=== PATIENT | female | born 1945 | race Caucasian/White ===

== ENCOUNTER 2021-04-23 09:46 | Inpatient (IN) ==
[2021-04-23] MEDS ORDERED: VANCOMYCIN CONSULT ACTIVE PRN (10:00)
[2021-04-23] MEDS ORDERED: PIPERACILLIN/TAZOBACTAM 4.5 GM/120 ML BAG IV ONE (10:00)
[2021-04-23] MEDS ORDERED: VANCOMYCIN HCL 2,250 MG in SODIUM CHLORIDE 0.9% 500 ML IV ONE (10:00)
[2021-04-23] MEDS ORDERED: PIPERACILL/TAZOBAC CONSULT ACTIVE PRN (10:00)
--- NOTE | 2021-04-23 10:05 | Emergency Department Note ---
Impression & Plan Acute appendicitis with rupture, Abdominal abscess ED Provider Note NAME: HARJIT ATKINS AGE: 75 SEX: F : 1945 ARRIVES VIA: Walk-In INFORMANT: Patient, ED PROVIDER(S): River Morales MD Chief Complaint: Abdominal pain, abnormal outpatient CT HPI: Patient presents due to concern for abdominal pain ongoing approximate 2 weeks with associated constipation where the patient had been following with [facility] ROQUE Jewell was taking MiraLAX and eventually had a bowel movement this past Thursday. The patient had had some persistent but intermittent pain in the right abdomen which was medication severe. The patient was arrange an outpatient CT which was completed this morning and she was referr ed here for further evaluation and treatment. Patient CT does show concern for likely perforated appendicitis with multiple abscesses. Patient denies any fevers or chills. Patient Nuys any chest pains or shortness of breath. Patient not vaccinated for COVID denies any recent alcohol use. The patient last ate or drank something last night. Patient is a non-smoker. Patient has had some nausea but no vomiting. Patient states that the pain has been again intermittent persistent and is occasionally sharp but occasionally more dull. ROS: See HPI for pertinent positives and negatives. A total of 10 systems were reviewed and otherwise negative. Past medical history: See below Surgical history: See below Social history: See below Physical Exam: GENERAL: NAD, wearing glasses, wearing a mask, non-toxic. EYE EXAM: Normal conjunctiva. PERRL, no anisocoria and EOM's grossly intact w/o pain. NECK: Supple, no nuchal rigidity, no adenopathy, non-tender. No signs of meningismus. LUNGS: Clear to auscultation. Normal chest wall mechanics. HEART: NSR, no MRG. ABDOMEN: Abdomen soft, non-tender, normo-active bowel sounds, no masses, no rebound or guarding. BACK: No CVA TTP. SKIN: No rashes and no bruising. UPPER EXTREMITIES: Upper extremities are grossly normal. LOWER EXTREMITIES: Grossly normal, no edema. NEURO EXAM: A&O x3, cranial nerves II-XII grossly intact, normal speech, moves all 4 extremities on command w/o issue. Differential diagnoses: Appendicitis, ovarian cyst, ovarian torsion, ectopic , TOA, PID, infections, diverticulitis, UTI, obstruction, mesenteric ischemia, aortic pathology, inflammatory bowel disease, renal colic, PUD, pancreatitis, biliary pathology, hernia, volvulus, constipation, as well as other pathologies. Course: Patient was seen and evaluated the bedside. Full history physical exam was performed. EKG interpreted by me Normal sinus rhythm, rate in V3, wide QRS and right bundle branch block pattern. Imaging Studies: Outpatient CT completed prior to arrival CT SCAN OF THE ABDOMEN AND PELVIS WITH IV CONTRAST CLINICAL HISTORY: Right-sided abdominal pain. Constipation. COMPARISON STUDY: No priors. TECHNIQUE: Following the IV administration of 95 cc of Optiray 320, CT scan of the abdomen and pelvis is performed from the lung bases to the proximal femora. Images are reviewed in the axial, sagittal, and coronal planes. IV contrast was administered without complication. Oral contrast was utilized. A dose lowering technique was utilized adhering to the principles of ALARA. CT DOSE: 926.92 mGy.cm FINDINGS: Lung bases: The heart is mildly enlarged and without pericardial effusion. There is a moderate hiatal hernia. There are trace pleural effusions with dependent atelectasis. A 3 mm pulmonary nodule in the right middle lobe as seen on image #3. A punctate calcified granuloma seen at the left lung base. Liver: The contrast-enhanced liver is normal in size, contour, and attenuation. There is no intrahepatic biliary ductal dilatation. The hepatic veins and portal veins are patent. Gallbladder: Contracted. Spleen: Normal in size and attenuation. Pancreas: Unremarkable. Adrenal glands: Unremarkable. Kidneys: The contrast enhanced kidneys are normal in size and without hydronephrosis. The kidneys enhance symmetrically. Abdominal vasculature: The abdominal aorta is normal in course and caliber. Bowel and peritoneum: There is no bowel obstruction. Enteric contrast reaches the rectum. There is mild to moderate colonic diverticulosis without CT evidence of acute diverticulitis. There is a large calcified appendicolith at the base of the appendix seen on image #237. There is inflammatory process in the right lower quadrant centered around the expected location of the appendix. The appendix is markedly abnormal, with evidence of appendicitis and rupture. There is a thick walled, peripherally enhancing, and multiloculated fluid collection identified in the right lower quadrant extending superiorly along the cecum and along the anterior and posterior aspect of the liver. There is associated wall thickening of the cecum and ascending colon. A loculation of the collection extending from the right lower quadrant along the lateral aspect of the ascending colon on image #235 measures approximately 7.5 x 6.5 x 3 cm in aggregate dimension. A loculation along the posterior/inferior aspect of the right lobe of the liver seen on image #178 measures 4.0 x 4.4 x 3.3 cm. A small loculation along the anterior/inferior right lobe of liver on image #169 measures 3.1 x 4.1 x 1.8 cm. There is no intraperitoneal free air or abdominal ascites. There is a small fat-containing umbilical hernia. Lymphadenopathy: None. Pelvic viscera: The bladder, uterus, and adnexa are normal as visualized. Skeletal structures: The skeletal structures are osteopenic. There is mild to moderate lumbosacral spondylosis. Large posterior disc osteophyte complexes are seen at T12-L1 and L1-L2. No lytic or blastic lesions are seen. IMPRESSION: 1. There is a large inflammatory process in the right lower quadrant as detailed above, likely representing perforated appendicitis. Surgical assessment is advised. 2. There are several multiloculated fluid collections in the right hemiabdomen as detailed above extending from the right lower quadrant/base of the cecum to the inferior margin of the liver (both anteriorly and posteriorly). These are typical for abscesses. 3. Wall thickening of the cecum is likely related to adjacent inflammation. 4. Cardiomegaly and trace pleural effusions. 5. Moderate hiatal hernia. 6. There is no bowel obstruction. 7. Additional findings as above. Findings were discussed with Leidy Ahn at the time of interpretation. ACT 112: Negative or not required by law. Electronically signed by: Wilman Vizcaino M.D. 04/23/2021 9:19 AM Dictated:04/23/2148 Transcribed: 04/23/21 09 Cardiac monitoring: An order was placed for continuous cardiac monitoring. The monitor shows a rate of 85 with sinus rhythm. MDM: Patient was seen due to concern for intermittent abdominal pain in the right side. The patient did have an outpatient CAT scan which showed concern for ruptured appendicitis with multiple abdominal wall abscesses. Patient currently has no acute abdominal pain on exam. Given the patient's acute process I did speak with the on-call general surgeon Dr. Dunn and Alexsandra Yarbrough PA-C. They both evaluate the patient believe the patient should go to place where there is interventional radiology. I did initiated transfer to [facility]. The patient was empirically covered with vancomycin and Zosyn given the concern for ruptured appendicitis and abdominal abscesses. . Patient has a white count of 16 with very mild anemia hemoglobin 11.2. Patient's platelet count is slightly elevated 438. Patient did have a screening chest ray completed which showed cardiomegaly and small pleural effusions. I did speak with Dr. Zuniga with general surgery who, expect accepted the patient. The patient was put on the wait list as they were pending discharges but no current beds available. Upon several reassessments the patient had no pain. Patient was ordered her home medications and was scheduled her antibiotics. The patient was also started on maintenance fluids. Patient was signed out to Dr. Oro pending transfer. Past Med/Surg History Medical History H/O: HTN (hypertension) HLD (hyperlipidemia) Surgical History History of tonsillectomy Social History Smoking Status: Never smoker Feels Safe at Home: Yes Immunizations: Not vaccinated for COVID-19 Allergies Allergies Allergy/AdvReac Type Severity Reaction Status Date / Time No Known Allergies Allergy Verified 04/23/21 15:45 Home Meds Home Medications Medication Instructions Recorded Confirmed Quercetin 500 mg PO QAM 04/23/21 04/23/21 ascorbic acid (vitamin C) 500 mg 500 mg PO QAM 04/23/21 04/23/21 tablet (Vitamin C) aspirin 81 mg tablet,delayed 81 mg PO QPM 04/23/21 04/23/21 release atorvastatin 10 mg tablet (Lipitor) 10 mg PO PM 04/23/21 04/23/21 carvedilol 6.25 mg tablet (Coreg) 6.25 mg PO BID 04/23/21 04/23/21 cholecalciferol (vitamin D3) 50 50 mcg PO QAM 04/23/21 04/23/21 mcg (2,000 unit) capsule (Vitamin D3) hydrochlorothiazide 12.5 mg tablet 12.5 mg PO DAILY PRN 04/23/21 04/23/21 lisinopril 20 mg tablet 20 mg PO QPM 04/23/21 04/23/21 omega-3 fatty acids 1,000 mg 1,000 mg PO QAM 04/23/21 04/23/21 capsule zinc 50 mg tablet 50 mg PO QAM 04/23/21 04/23/21 Results & Data (ED) Vital Signs Vital Signs - 24 hr 04/23/21 14:30 04/23/21 15:00 04/23/21 15:30 Temperature Temperature Source Pulse Rate 83 83 81 Pulse Rate [Apical] Pulse Rate from SpO2 Sensor 82 83 82 Pulse Rhythm [Apical] Pulse Strength [Apical] Respiratory Rate 24 28 H 28 H Respiratory Effort / Characteristics Respiratory Depth Respiratory Pattern Blood Pressure 146/83 H 148/83 H 155/90 H Blood Pressure [Left Arm] Blood Pressure Mean 104 104 111 Blood Pressure Mean [Left Arm] Blood Pressure Position [Left Arm] Pulse Oximetry 95 96 96 Oxygen Delivery Method 04/23/21 16:00 04/23/21 16:30 04/23/21 17:00 Temperature Temperature Source Pulse Rate 80 84 85 Pulse Rate [Apical] Pulse Rate from SpO2 Sensor 84 85 Pulse Rhythm [Apical] Pulse Strength [Apical] Respiratory Rate 22 29 H 26 H Respiratory Effort / Characteristics Respiratory Depth Respiratory Pattern Blood Pressure 146/89 H 145/94 H Blood Pressure [Left Arm] Blood Pressure Mean 108 111 Blood Pressure Mean [Left Arm] Blood Pressure Position [Left Arm] Pulse Oximetry 96 96 Oxygen Delivery Method 04/23/21 17:30 04/23/21 18:00 04/23/21 19:30 Temperature Temperature Source Pulse Rate 82 92 H 89 Pulse Rate [Apical] Pulse Rate from SpO2 Sensor 80 93 H Pulse Rhythm [Apical] Pulse Strength [Apical] Respiratory Rate 24 29 H 27 H Respiratory Effort / Characteristics Respiratory Depth Respiratory Pattern Blood Pressure 142/82 H 157/83 H 135/73 Blood Pressure [Left Arm] Blood Pressure Mean 102 107 93 Blood Pressure Mean [Left Arm] Blood Pressure Position [Left Arm] Pulse Oximetry 95 95 95 Oxygen Delivery Method 04/23/21 20:00 04/23/21 21:00 04/23/21 22:00 Temperature Temperature Source Pulse Rate 92 H 88 88 Pulse Rate [Apical] Pulse Rate from SpO2 Sensor 89 Pulse Rhythm [Apical] Pulse Strength [Apical] Respiratory Rate 25 H 17 30 H Respiratory Effort / Characteristics Respiratory Depth Respiratory Pattern Blood Pressure 135/77 131/72 Blood Pressure [Left Arm] Blood Pressure Mean 96 91 Blood Pressure Mean [Left Arm] Blood Pressure Position [Left Arm] Pulse Oximetry 94 95 94 Oxygen Delivery Method 04/24/21 00:00 04/24/21 01:00 04/24/21 02:00 Temperature Temperature Source Pulse Rate 84 88 87 Pulse Rate [Apical] Pulse Rate from SpO2 Sensor Pulse Rhythm [Apical] Pulse Strength [Apical] Respiratory Rate 23 25 H 24 Respiratory Effort / Characteristics Respiratory Depth Respiratory Pattern Blood Pressure Blood Pressure [Left Arm] Blood Pressure Mean Blood Pressure Mean [Left Arm] Blood Pressure Position [Left Arm] Pulse Oximetry 95 95 94 Oxygen Delivery Method 04/24/21 03:00 04/24/21 04:00 04/24/21 05:00 Temperature Temperature Source Pulse Rate 90 78 78 Pulse Rate [Apical] Pulse Rate from SpO2 Sensor 91 H 79 78 Pulse Rhythm [Apical] Pulse Strength [Apical] Respiratory Rate 24 23 20 Respiratory Effort / Characteristics Respiratory Depth Respiratory Pattern Blood Pressure Blood Pressure [Left Arm] Blood Pressure Mean Blood Pressure Mean [Left Arm] Blood Pressure Position [Left Arm] Pulse Oximetry 94 94 94 Oxygen Delivery Method 04/24/21 06:00 04/24/21 07:16 04/24/21 08:01 Temperature Temperature Source Pulse Rate 74 73 74 Pulse Rate [Apical] Pulse Rate from SpO2 Sensor 75 74 74 Pulse Rhythm [Apical] Pulse Strength [Apical] Respiratory Rate 23 24 23 Respiratory Effort / Characteristics Respiratory Depth Respiratory Pattern Blood Pressure 166/113 H 180/82 H Blood Pressure [Left Arm] Blood Pressure Mean 130 114 Blood Pressure Mean [Left Arm] Blood Pressure Position [Left Arm] Pulse Oximetry 96 96 97 Oxygen Delivery Method 04/24/21 08:25 04/24/21 09:00 04/24/21 10:00 Temperature Temperature Source Pulse Rate 76 92 H 75 Pulse Rate [Apical] Pulse Rate from SpO2 Sensor Pulse Rhythm [Apical] Pulse Strength [Apical] Respiratory Rate 25 H 25 H 24 Respiratory Effort / Characteristics Respiratory Depth Respiratory Pattern Blood Pressure 118/48 L 121/66 126/74 Blood Pressure [Left Arm] Blood Pressure Mean 71 84 91 Blood Pressure Mean [Left Arm] Blood Pressure Position [Left Arm] Pulse Oximetry 96 Oxygen Delivery Method 04/24/21 11:00 04/24/21 11:32 Temperature 37.5 C Temperature Source Oral Pulse Rate 73 Pulse Rate [Apical] 77 Pulse Rate from SpO2 Sensor Pulse Rhythm [Apical] Regular Pulse Strength [Apical] Normal Respiratory Rate 23 18 Respiratory Effort / Characteristics Non-Labored Spontaneous Normal for Patient Respiratory Depth Normal Respiratory Pattern Regular Blood Pressure 126/65 Blood Pressure [Left Arm] 133/68 Blood Pressure Mean 85 Blood Pressure Mean [Left Arm] 89 Blood Pressure Position [Left Arm] Semi-fowlers Pulse Oximetry 95 99 Oxygen Delivery Method Room Air Home Medications Current Medication List: was personally reviewed by me Laboratory Data Attestation: I reviewed the patient's lab results. Result diagrams: 04/23/21 10:40 04/24/21 04:49 Lab Results 04/23/21 04/23/21 04/23/21 Range/Units 10:40 10:40 10:40 WBC 16.83 H (4.8-10.8) K/uL RBC 3.59 L (4.2-5.4) M/uL Hgb 11.2 L (12.0-16.0) g/dL Hct 35.0 L (37-47) % MCV 97.5 (80-100) fL MCH 31.2 (25-34) pg MCHC 32.0 (32-36) g/dL RDW Std Deviation 46.6 H (36.4-46.3) fL RDW Coeff of Fatoumata 13.0 (11.5-14.5) % Plt Count 438 H (130-400) K/uL MPV 9.1 (7.4-10.4) fL Immature Gran % (Auto) 0.2 % Neut % (Auto) 86.9 % Lymph % (Auto) 4.8 % Noble % (Auto) 7.5 % Eos % (Auto) 0.5 % Baso % (Auto) 0.1 % Neut # (Auto) 14.61 H (1.4-6.5) K/uL Lymph # (Auto) 0.80 L (1.2-3.4) K/uL Noble # (Auto) 1.27 H (0.11-0.59) K/uL Eos # (Auto) 0.09 (0-0.5) K/uL Baso # (Auto) 0.02 (0-0.2) K/uL Immature Gran # (Auto) 0.04 H (0.00-0.02) K/uL Sodium 136 (136-145) mmol/L Potassium (3.5-5.1) mmol/L Chloride 106 (98-107) mmol/L Carbon Dioxide 20 L (21-32) mmol/L Anion Gap 10 (3-11) BUN 28 H (6-23) mg/dl Creatinine 1.37 H (0.6-1.2) mg/dl Est Cr Clr Drug Dosing 40.0 ml/min Est GFR ( Amer) 44.2 ml/min Est GFR (Non-Af Amer) 38.2 ml/min BUN/Creatinine Ratio 20.4 H (10-20) Glucose 75 (70-99(Fasting)) mg/dl Calcium 9.1 (8.5-10.1) mg/dl Total Bilirubin 0.4 (0.2-1.0) mg/dl AST (13-39) U/L ALT 16 (7-52) U/L Alkaline Phosphatase 77 (34-104) U/L Total Protein 7.0 (6.0-8.3) gm/dl Albumin 3.3 L (3.4-5.0) gm/dl Globulin 3.7 (2.5-4.0) gm/dl Albumin/Globulin Ratio 0.9 (0.9-2) SARS-CoV-2, RNA, NAAT Cancelled 04/23/21 04/23/21 04/24/21 Range/Units 11:20 11:39 04:49 WBC (4.8-10.8) K/uL RBC (4.2-5.4) M/uL Hgb (12.0-16.0) g/dL Hct (37-47) % MCV (80-100) fL MCH (25-34) pg MCHC (32-36) g/dL RDW Std Deviation (36.4-46.3) fL RDW Coeff of Fatoumata (11.5-14.5) % Plt Count (130-400) K/uL MPV (7.4-10.4) fL Immature Gran % (Auto) % Neut % (Auto) % Lymph % (Auto) % Noble % (Auto) % Eos % (Auto) % Baso % (Auto) % Neut # (Auto) (1.4-6.5) K/uL Lymph # (Auto) (1.2-3.4) K/uL Noble # (Auto) (0.11-0.59) K/uL Eos # (Auto) (0-0.5) K/uL Baso # (Auto) (0-0.2) K/uL Immature Gran # (Auto) (0.00-0.02) K/uL Sodium (136-145) mmol/L Potassium 4.2 (3.5-5.1) mmol/L Chloride (98-107) mmol/L Carbon Dioxide (21-32) mmol/L Anion Gap (3-11) BUN (6-23) mg/dl Creatinine 1.36 H (0.6-1.2) mg/dl Est Cr Clr Drug Dosing 40.2 ml/min Est GFR ( Amer) 44.6 ml/min Est GFR (Non-Af Amer) 38.5 ml/min BUN/Creatinine Ratio (10-20) Glucose (70-99(Fasting)) mg/dl Calcium (8.5-10.1) mg/dl Total Bilirubin (0.2-1.0) mg/dl AST 16 (13-39) U/L ALT (7-52) U/L Alkaline Phosphatase (34-104) U/L Total Protein (6.0-8.3) gm/dl Albumin (3.4-5.0) gm/dl Globulin (2.5-4.0) gm/dl Albumin/Globulin Ratio (0.9-2) SARS-CoV-2, RNA, NAAT NEGATIVE Administered Medications Carvedilol (Carvedilol 6.25 Mg Tab) 6.25 mg PO BID [facility] Stop: 05/23/21 20:59 Last Admin: 04/24/21 08:29 Dose: 6.25 mg Documented by: [id number] Admin: 04/23/21 21:28 Dose: 6.25 mg Documented by: [id number] Piperacillin Sod/Tazobactam (Sod 4.5 gm/ Dextrose) 120 mls @ 30 mls/hr IV Q8H [facility]; Protocol Stop: 05/03/21 15:59 Last Admin: 04/24/21 08:29 Dose: 30 mls/hr Documented by: [id number] Infusion: 04/24/21 05:02 Dose: 0 mls/hr Documented by: [id number] Admin: 04/24/21 00:23 Dose: 30 mls/hr Documented by: [id number] Infusion: 04/23/21 20:49 Dose: 0 mls/hr Documented by: [id number] Admin: 04/23/21 16:57 Dose: 30 mls/hr Documented by: [id number] Sodium Chloride (Nss) 500 mls @ 100 mls/hr IV .Q5H [facility] Stop: 05/23/21 15:44 Last Infusion: 04/24/21 08:19 Dose: 0 mls/hr Documented by: [id number] Admin: 04/24/21 03:13 Dose: 100 mls/hr Documented by: [id number] Infusion: 04/24/21 03:13 Dose: 0 mls/hr Documented by: [id number] Admin: 04/23/21 21:29 Dose: 100 mls/hr Documented by: [id number] Infusion: 04/23/21 20:49 Dose: 0 mls/hr Documented by: [id number] Admin: 04/23/21 15:42 Dose: 100 mls/hr Documented by: [id number] Vancomycin HCl 1,000 mg/ (Sodium Chloride) 270 mls @ 200 mls/hr IV Q18H [facility] Stop: 05/04/21 07:59 Last Infusion: 04/24/21 09:55 Dose: 0 mls/hr Documented by: [id number] Admin: 04/24/21 08:28 Dose: 200 mls/hr Documented by: [id number] Lactated Ringer's (Lr) 1,000 mls @ 15 mls/hr IV .Q24H [facility]EN Stop: 04/25/21 12:14 Last Infusion: 04/24/21 12:03 Dose: 0 mls/hr Documented by: [id number] Admin: 04/24/21 11:59 Dose: 15 mls/hr Documented by: [id number] Lisinopril (Lisinopril 20 Mg Tab) 20 mg PO HS KEN Stop: 05/23/21 20:59 Last Admin: 04/23/21 21:28 Dose: 20 mg Documented by: [id number] Discontinued Medications Piperacillin Sod/Tazobactam Sod (Zosyn) 4.5 gm in 120 mls @ 240 mls/hr IV NOW ONE Stop: 04/23/21 10:29 Last Infusion: 04/23/21 11:45 Dose: 0 mls/hr Documented by: [id number] Admin: 04/23/21 11:15 Dose: 240 mls/hr Documented by: [id number] Vancomycin HCl 2,250 mg/ (Sodium Chloride) 545 mls @ 200 mls/hr IV NOW ONE Stop: 04/23/21 12:43 Last Infusion: 04/23/21 16:00 Dose: 0 mls/hr Documented by: [id number] Admin: 04/23/21 12:50 Dose: 200 mls/hr Documented by: [id number] Pantoprazole Sodium 40 mg/ (Syringe) 10 mls @ 5 mls/min IV NOW ONE Stop: 04/23/21 20:38 Last Admin: 04/23/21 21:29 Dose: 5 mls/min Documented by: [id number] Sodium Chloride (Nss 1000ml) 1,000 mls @ 999 mls/hr IV .Q1H1M ONE Stop: 04/24/21 09:03 Last Infusion: 04/24/21 10:47 Dose: 0 mls/hr Documented by: [id number] Admin: 04/24/21 08:28 Dose: 999 mls/hr Documented by: [id number] Imaging Data Radiologist's Impression: Chest X-Ray 04/23/21 10:00 SINGLE VIEW CHEST CLINICAL HISTORY: Generalized weakness. FINDINGS: An AP, portable, upright chest radiograph is obtained. Correlation is made with abdominal CT performed the same day 04/23/2021. The heart is enlarged. The pulmonary vasculature is noncongested. There are small pleural effusions with bibasilar atelectasis. No pneumothorax is seen. The skeletal structures are osteopenic. The bony thorax is grossly intact. IMPRESSION: Cardiomegaly and small pleural effusions. ACT 112: Negative or not required by law. Electronically signed by: Wilman Vizcaino M.D. 04/23/2021 10:19 AM Discharge Plan Visit Data Chief Complaint: Abnormal Labs/Diagnostic Testing Stated Complaint: CAT SCAN THIS MORNING, ISSUE W/ APPENDIX ED Provider: Anthony Fraga Discharge Problem: Acute appendicitis with rupture, Abdominal abscess Discharge Instructions Interventions: ED Discharge Assessment Last Done: 04/24/21 11:11 Forms Stand Alone Forms: [employer] Prescriptions Prescriptions: No Action carvedilol [Coreg] 6.25 mg Tablet 6.25 mg PO BID RF: 0 omega-3 fatty acids 1,000 mg Capsule 1,000 mg PO QAM RF: 0 atorvastatin [Lipitor] 10 mg Tablet 10 mg PO PM RF: 0 lisinopril 20 mg Tablet 20 mg PO QPM RF: 0 aspirin 81 mg Tablet,Delayed Release (Dr/Ec) 81 mg PO QPM RF: 0 ascorbic acid (vitamin C) [Vitamin C] 500 mg Tablet 500 mg PO QAM RF: 0 zinc 50 mg Tablet 50 mg PO QAM RF: 0 hydrochlorothiazide 12.5 mg Tablet 12.5 mg PO DAILY PRN (Reason: EDEMA OF LEGS) RF: 0 cholecalciferol (vitamin D3) [Vitamin D3] 50 mcg (2,000 unit) Capsule 50 mcg PO QAM RF: 0 Quercetin 500 mg PO QAM RF: 0 Referrals Referrals: PCP,NO [Primary Care Provider] -
--- NOTE | 2021-04-23 10:20 | XRay Report ---
SINGLE VIEW CHEST CLINICAL HISTORY: Generalized weakness. FINDINGS: An AP, portable, upright chest radiograph is obtained. Correlation is made with abdominal C T performed the same day 04/23/2021. The heart is enlarged. The pulmonary vasculature is noncongested. There are small pleural effusions with bibasilar atelectasis. No pneumothorax is seen. The skeletal structures are osteopenic. The bony thorax is grossly intact. IMPRESSION: Cardiomegaly and small pleural effusions. ACT 112: Negative or not required by law. Electronically signed by: Wilman Vizcaino M.D. 04/23/2021 10:19 AM
[2021-04-23 10:48] LABS: Basophils # (auto) 0.02 K/uL (0-0.2); Basophils % (auto) 0.1 %; Eosinophils # (auto) 0.09 K/uL (0-0.5); Eosinophils % (auto) 0.5 %; Hemoglobin 11.2 g/dL (12.0-16.0); Immature Granulocytes # (auto) 0.04 K/uL (0.00-0.02); Immature Granulocytes % (auto) 0.2 %; Lymphocytes % (auto) 4.8 %; Mean Corpuscular Hemoglobin 31.2 pg (25-34); Mean Corpuscular Volume 97.5 fL (80-100); Mean Platelet Volume 9.1 fL (7.4-10.4); Monocytes # (auto) 1.27 K/uL (0.11-0.59); Monocytes % (auto) 7.5 %; Neutrophils # (auto) 14.61 K/uL (1.4-6.5); Neutrophils % (auto) 86.9 %; Platelet Count 438 K/uL (130-400); RDW Standard Deviation 46.6 fL (36.4-46.3); Red Blood Count 3.59 M/uL (4.2-5.4); White Blood Count 16.83 K/uL (4.8-10.8)
[2021-04-23 11:15] LABS: Albumin Globulin Ratio 0.9 (0.9-2); Albumin Level 3.3 gm/dl (3.4-5.0); BUN Creatinine Ratio 20.4 (10-20); Bilirubin,Total 0.4 mg/dl (0.2-1.0); Calcium 9.1 mg/dl (8.5-10.1); Est GFR (African American) 44.2 ml/min; Est GFR (Non-African American) 38.2 ml/min; Globulin 3.7 gm/dl (2.5-4.0)
--- NOTE | 2021-04-23 11:30 | Surgery Consultation ---
Date of Consultation April 23, 2021 Assessment & Plan (1) Acute appendicitis with rupture: pt is a 75 year-old female who presents to ER with 2 weeks history abdominal pain, CT scan- perforated appendicitis, with abdominal abscess IMP: perforated appendicitis, with abdominal abscess plan, base on H/P, labs, CT scan finding, recommend to transfer higher level for percutaneous drainage abscess, D/W benefits, risks and alternatives of the transfer, pt and her understood, they agree with the plan,I answered all questions, D/W ER attending. (2) Abdominal abscess: History of Present Illness Reason for Consultation: perforated appendicitis Requesting Physician: River Kunz History of Present Illness Chief Complaint: Abdominal pain, abnormal outpatient CT HPI: Patient presents due to concern for abdominal pain ongoing approximate 2 weeks with associated constipation [facility] MiraLA[facility] and eventually had a bowel movement this past Thursday. The patient had had some persistent but intermittent pain in the right abdomen which was medication severe. The patient was arrange an outpatient CT which was completed this morning and she was referred here for further evaluation and treatment. Patient CT does show concern for likely perforated appendicitis with multiple abscesses. Patient denies any fevers or chills. Patient [place] any chest pains or shortness of breath. Patient not vaccinated for COVID denies any recent alcohol use. The patient last ate or drank something last night. Patient is a non-smoker. Patient has had some nausea but no vomiting. Patient states that the pain has been again intermittent persistent and is occasionally sharp but occasionally more dull. I ( Sandra Dunn MD ) got a call for consult perforated appendicitis, I reviewed pt's H/P, labs CT scan with pt, pt feels better, less abdominal pain, no fever. Patient History Social History Smoking Status: Never smoker Feels Safe at Home: Yes Review of Systems Constitutional: as per Subjective / HPI Eyes: as per Subjective / HPI Respiratory: as per Subjective / HPI Cardiovascular: Additional Comments: abnormal EKG, no chest pain Gastrointestinal: as per Subjective / HPI Genitourinary: as per Subjective / HPI Musculoskeletal: as per Subjective / HPI Neurologic: as per Subjective / HPI Psychiatric: as per Subjective / HPI Endocrine: as per Subjective / HPI Hematologic / Lymphatic: as per Subjective / HPI Physical Exam Constitutional: WD/WN, vitals as above no acute distress, Eyes: PERRL, conjunctivae normal, anicteric sclerae Neck: trachea midline, no thyromegaly Respiratory: normal respiratory effort, lungs clear to auscultation Cardiovascular: RRR, no murmur, no edema Gastrointestinal (Abdomen): soft, tenderness at RLQ, no rebound pain, no distend, BS + Musculoskeletal: no cyanosis or clubbing, extremities motor strength 5/5 Neurologic: patellar DTR's 2+ bilat, sensation intact Psychiatric: A+Ox3, euthymic affect Results & Data ([facility]) Vital Signs (Past 12 Hours) Vital Signs Temp Pulse Resp BP Pulse Ox 04/23/21 10:13 96 04/23/21 09:48 36.4 C L 92 H 16 173/84 H 97 Laboratory Results Abnormal lab results 04/23/21 04/23/21 Range/Units 10:40 10:40 WBC 16.83 H (4.8-10.8) K/uL RBC 3.59 L (4.2-5.4) M/uL Hgb 11.2 L (12.0-16.0) g/dL Hct 35.0 L (37-47) % RDW Std Deviation 46.6 H (36.4-46.3) fL Plt Count 438 H (130-400) K/uL Neut # (Auto) 14.61 H (1.4-6.5) K/uL Lymph # (Auto) 0.80 L (1.2-3.4) K/uL [place] # (Auto) 1.27 H (0.11-0.59) K/uL Immature Gran # (Auto) 0.04 H (0.00-0.02) K/uL Carbon Dioxide 20 L (21-32) mmol/L BUN 28 H (6-23) mg/dl Creatinine 1.37 H (0.6-1.2) mg/dl BUN/Creatinine Ratio 20.4 H (10-20) Albumin 3.3 L (3.4-5.0) gm/dl Diagnostic Findings CT SCAN OF THE ABDOMEN AND PELVIS WITH IV CONTRAST CLINICAL HISTORY: Right-sided abdominal pain. Constipation. COMPARISON STUDY: No priors. TECHNIQUE: Following the IV administration of 95 cc of Optiray 320, CT scan of the abdomen and pelvis is performed from the lung bases to the proximal femora. Images are reviewed in the axial, sagittal, and coronal planes. IV contrast was administered without complication. Oral contrast was utilized. A dose lowering technique was utilized adhering to the principles of ALARA. CT DOSE: 926.92 mGy.cm FINDINGS: Lung bases: The heart is mildly enlarged and without pericardial effusion. There is a moderate hiatal hernia. There are trace pleural effusions with dependent atelectasis. A 3 mm pulmonary nodule in the right middle lobe as seen on image #3. A punctate calcified granuloma seen at the left lung base. Liver: The contrast-enhanced liver is normal in size, contour, and attenuation. There is no intrahepatic biliary ductal dilatation. The hepatic veins and portal veins are patent. Gallbladder: Contracted. Spleen: Normal in size and attenuation. Pancreas: Unremarkable. Adrenal glands: Unremarkable. Kidneys: The contrast enhanced kidneys are normal in size and without hydronephrosis. The kidneys enhance symmetrically. Abdominal vasculature: The abdominal aorta is normal in course and caliber. Bowel and peritoneum: There is no bowel obstruction. Enteric contrast reaches the rectum. There is mild to moderate colonic diverticulosis without CT evidence of acute diverticulitis. There is a large calcified appendicolith at the base of the appendix seen on image #237. There is inflammatory process in the right lower quadrant centered around the expected location of the appendix. The appendix is markedly abnormal, with evidence of appendicitis and rupture. There is a thick walled, peripherally enhancing, and multiloculated fluid collection identified in the right lower quadrant extending superiorly along the cecum and along the anterior and posterior aspect of the liver. There is associated wall thickening of the cecum and ascending colon. A loculation of the collection extending from the right lower quadrant along the lateral aspect of the ascending colon on image #235 measures approximately 7.5 x 6.5 x 3 cm in aggregate dimension. A loculation along the posterior/inferior aspect of the right lobe of the liver seen on image #178 measures 4.0 x 4.4 x 3.3 cm. A small loculation along the anterior/inferior right lobe of liver on image #169 me asures 3.1 x 4.1 x 1.8 cm. There is no intraperitoneal free air or abdominal ascites. There is a small fat-containing umbilical hernia. Lymphadenopathy: None. Pelvic viscera: The bladder, uterus, and adnexa are normal as visualized. Skeletal structures: The skeletal structures are osteopenic. There is mild to moderate lumbosacral spondylosis. Large posterior disc osteophyte complexes are seen at T12-L1 and L1-L2. No lytic or blastic lesions are seen. IMPRESSION: 1. There is a large inflammatory process in the right lower quadrant as detailed above, likely representing perforated appendicitis. Surgical assessment is advised. 2. There are several multiloculated fluid collections in the right hemiabdomen as detailed above extending from the right lower quadrant/base of the cecum to the inferior margin of the liver (both anteriorly and posteriorly). These are typical for abscesses. 3. Wall thickening of the cecum is likely related to adjacent inflammation. 4. Cardiomegaly and trace pleural effusions. 5. Moderate hiatal hernia. 6. There is no bowel obstruction. 7. Additional findings as above.
--- NOTE | 2021-04-23 11:56 | Electrocardiogram Report ---
Test Reason : Blood Pressure : / mmHG Vent. Rate : 093 BPM Atrial Rate : 093 BPM P-R Int : 140 ms QRS Dur : 140 ms QT Int : 404 ms P-R-T Axes : 061 237 026 degrees QTc Int : 502 ms Poor data quality, interpretation may be adversely affected Normal sinus rhythm Right bundle branch block Poor R wave progression, consider anterior NV vs. lead placement vs. LVH Abnormal ECG No previous ECGs available Confirmed by Jonathan Joy ([id number]) on 04/23/2021 11:56:14 AM Referred By: Leidy Ahn Confirmed By:Jonathan Joy
[2021-04-23 12:16] LABS: Potassium 4.2 mmol/L (3.5-5.1)
[2021-04-23] MEDS: SODIUM CHLORIDE 0.9% 500 ML IV SCH ×2 (15:42→21:29)
--- NOTE | 2021-04-23 16:51 | Pharmacy Report ---
Pharmacy Vanc AUC Short Note - Date of Service April 23, 2021 - Assessment & Plan Assessment 75 year old F receiving vancomycin and zosyn for treatment of perforated appendicitis w/ abscesses. Awaiting transfer to higher level of care for percutaneous drainage. Blood cultures pending, eCrCL ~ 40mL/min. Day #1 of antimicrobial therapy Plan Vancomycin * AUC/DEYANIRA is the preferred PK/PD target for vancomycin * AUC guided dosing is effective and associated with decreased risk of nephrotoxicity compared to traditional trough targets * Trough level of 18.8mcg/mL is predicted to achieve target AUC/DEYANIRA of 400-600 mg/L.hr and may be associated with a 15 % risk of nephrotoxicity * S/p vancomycin 2250mg IV load. Begin 1gm IV q18h. * Will evaluate renal function in AM to dose adjust if necessary. Plan to obtain a trough around steady state to correlate with AUC. Zosyn * 4.5gm IV q8h extended infusion for CrCL >20mL/min and BMI>35 Pharmacy will continue to follow and will adjust dose/frequency as necessary. Thank you.
[2021-04-23] MEDS: PIPERACILLIN/TAZOBACTAM 4.5 GM in DEXTROSE 5% 100 ML IV SCH (16:57)
[2021-04-23] MEDS ORDERED: PANTOprazole 40 MG in SYRINGE 0 ML IV ONE (20:37)
[2021-04-23] MEDS ORDERED: lisinopril 20 MG TAB PO SCH (21:00)
[2021-04-23] MEDS: carvediloL 6.25 MG TAB PO SCH (21:28)
[2021-04-24] MEDS: PIPERACILLIN/TAZOBACTAM 4.5 GM in DEXTROSE 5% 100 ML IV SCH ×4 (00:23→23:17)
--- NOTE | 2021-04-24 00:56 | Emergency Department Note ---
ED Visit Note Patient was signed out to me by Dr. Morales at change of shift, in brief, patient is a 75-year-old female who presented to the emergency department with ongoing abdominal pain for several weeks, outpatient CT imaging today showed evidence of a perforated appendicitis with evidence of intra-abdominal abscess. On my assessment the patient is resting comfortably in bed, states that she feels well at rest, she is hemodynamically stable, she is watching TV. Her abdomen is soft, she has some mild tenderness in the right side of her abdomen to palp ation. She is not peritonitis on my exam. Pt has been ordered IV antibiotics with Zosyn every 8 hours, she did receive her second dose of Zosyn during my shift, and has been accepted for transfer to [facility] for abscess drainage likely by interventional radiology. She was assessed by general surgery here in the ED for consultation who recommended transfer. I was informed by the ED ranch cook the transfer will likely be occurring in the morning, there is no bed availability at [facility] overnight. Patient was therefore signed out to Dr. Christie in stable condition for further care pending transfer to [facility]. Patient was in agreement to the above plan, she was updated and aware of the current transfer schedule. .
[2021-04-24] MEDS: SODIUM CHLORIDE 0.9% 500 ML IV SCH (03:13)
[2021-04-24 05:47] LABS: Creatinine Clr Calc Pharmacy 40.2 ml/min; Est GFR (African American) 44.6 ml/min; Est GFR (Non-African American) 38.5 ml/min
--- NOTE | 2021-04-24 07:40 | Emergency Department Note ---
ED Visit Note I received this patient at change of shift signout. The patient is a 75-year-old female who has a ruptured appendicitis with multiple intra-abdominal abscesses. She was initially evaluated by surgery in our department and was slated for transfer. She has been receiving all of her outpatient medications as well as IV antibiotics. She is not febrile this morning. The patient is still waiting a bed at [facility]. We contacted [facility] this morning and they still have no bed available. I will reevaluate the patient to determine if she would prefer a different tertiary center for transfer. I did evaluate the patient this morning. She does state that her pain is starting to return. She notices pain mostly on the right side and in the right upper abdomen. She denies having any fever or vomiting today. The patient states she would not mind if we tried to call a different tertiary center for transfer as the patient has been in our department for many hours without surgical intervention or interventional radiology. 0800: I discussed this case with Dr. Bond at [facility] for general surgery. He will accept the patient in transfer and consult interventional radiology upon arrival. 0930: I did discuss the patient's case again with our general surgical group. I asked that they could come and reevaluate the patient as she has been here for 24 hours. Upon reevaluation they did offer the patient the opportunity to be taken to our operating room for laparoscopic management and possible surgical drainage of these abscesses. After discussion with the patient's significant other she would prefer to have this option. The patient was consented for the OR by the general surgeon. Patient: HARJIT ATKINS Admit Date: 04/23/21 MR#: [id number] Address1: [address] [place] Acct ID:[id number] Address2: Date: 1945 [facility] Zip: [place] [address] Age: 75 Location: CT Sex: F Room/Bed: Att Phy: Leidy Ahn CRNP Diagnosis: ABD PAIN, CONSTIPATION Misty Phy: PCP,NO Service Date: 04/23/21 Fam Phy: Interpreting Phy: Wilman Vizcaino MD Admit Phy: Ordering Phy: Leidy Ahn CRNP cc: ~ CT SCAN OF THE ABDOMEN AND PELVIS WITH IV CONTRAST CLINICAL HISTORY: Right-sided abdominal pain. Constipation. COMPARISON STUDY: No priors. TECHNIQUE: Following the IV administration of 95 cc of Optiray 320, CT scan of the abdomen and pelvis is performed from the lung bases to the proximal femora. Images are reviewed in the axial, sagittal, and coronal planes. IV contrast was administered without complication. Oral contrast was utilized. A dose lowering technique was utilized adhering to the principles of ALARA. CT DOSE: 926.92 mGy.cm FINDINGS: Lung bases: The heart is mildly enlarged and without pericardial effusion. There is a moderate hiatal hernia. There are trace pleural effusions with dependent atelectasis. A 3 mm pulmonary nodule in the right middle lobe as seen on image #3. A punctate calcified granuloma seen at the left lung base. Liver: The contrast-enhanced liver is normal in size, contour, and attenuation. There is no intrahepatic biliary ductal dilatation. The hepatic veins and portal veins are patent. Gallbladder: Contracted. Spleen: Normal in size and attenuation. Pancreas: Unremarkable. Adrenal glands: Unremarkable. Kidneys: The contrast enhanced kidneys are normal in size and without hydronephrosis. The kidneys enhance symmetrically. Abdominal vasculature: The abdominal aorta is normal in course and caliber. Bowel and peritoneum: There is no bowel obstruction. Enteric contrast reaches the rectum. There is mild to moderate colonic diverticulosis without CT evidence of acute diverticulitis. There is a large calcified appendicolith at the base of the appendix seen on image #237. There is inflammatory process in the right lower quadrant centered around the expected location of the appendix. The appendix is markedly abnormal, with evidence of appendicitis and rupture. There is a thick walled, peripherally enhancing, and multiloculated fluid collection identified in the right lower quadrant extending superiorly along the cecum and along the anterior and posterior aspect of the liver. There is associated wall thickening of the cecum and ascending colon. A loculation of the collection extending from the right lower quadrant along the lateral aspect of the ascending colon on image #235 measures approximately 7.5 x 6.5 x 3 cm in aggregate dimension. A loculation along the posterior/inferior aspect of the right lobe of the liver seen on image #178 measures 4.0 x 4.4 x 3.3 cm. A small loculation along the anterior/inferior right lobe of liver on image #169 measures 3.1 x 4.1 x 1.8 cm. There is no intraperitoneal free air or abdominal ascites. There is a small fat-containing umbilical hernia. Lymphadenopathy: None. Pelvic viscera: The bladder, uterus, and adnexa are normal as visualized. Skeletal structures: The skeletal structures are osteopenic. There is mild to moderate lumbosacral spondylosis. Large posterior disc osteophyte complexes are seen at T12-L1 and L1-L2. No lytic or blastic lesions are seen. IMPRESSION: 1. There is a large inflammatory process in the right lower quadrant as detailed above, likely representing perforated appendicitis. Surgical assessment is advised. 2. There are several multiloculated fluid collections in the right hemiabdomen as detailed above extending from the right lower quadrant/base of the cecum to the inferior margin of the liver (both anteriorly and posteriorly). These are typical for abscesses. 3. Wall thickening of the cecum is likely related to adjacent inflammation. 4. Cardiomegaly and trace pleural effusions. 5. Moderate hiatal hernia. 6. There is no bowel obstruction. 7. Additional findings as above. Findings were discussed with Leidy Ahn at the time of interpretation. ACT 112: Negative or not required by law. Electronically signed by: Wilman Vizcaino M.D. 04/23/2021 9:19 AM Dictated: 04/23/21 0848 Transcribed: 04/23/21 0902 .
[2021-04-24] MEDS ORDERED: SODIUM CHLORIDE 0.9% 1000ML 1,000 ML IV ONE (08:03)
[2021-04-24] MEDS: VANCOMYCIN HCL 1,000 MG in SODIUM CHLORIDE 0.9% 250 ML IV SCH (08:28)
[2021-04-24] MEDS: carvediloL 6.25 MG TAB PO SCH ×2 (08:29→21:10)
[2021-04-24] MEDS ORDERED: MoRPHine SULFATE 4 MG/ML 1 ML CARP\\VIAL IV PRN (09:17)
[2021-04-24] MEDS ORDERED: MoRPHine SULFATE 2 MG/ML CARP IV PRN (09:17)
--- NOTE | 2021-04-24 10:43 | Surgery Progress Note ---
Date of Service April 24, 2021 Assessment & Plan (1) Acute appendicitis with rupture: Plan: pt is a 75 year-old female who presents to ER with 2 weeks history abdominal pain, CT scan- perforated appendicitis, with abdominal abscess IMP: perforated appendicitis, with abdominal abscess plan, base on H/P, labs, CT scan finding, recommend to transfer higher level for percutaneous drainage abscess, D/W benefits, risks and alternatives of the transfer, pt and her understood, they agree with the plan,I answered all questions, D/W ER attending. 04/24/2021 10: 36AM DR. Dunn after reviewed pt's H/P, labs and CT scan with pt and her , base on percu taneous drainage available now, I recommend to do laparoscopic wash out abdominal abscess, possible appendectomy, possible open, D/W benefits, risks and alternatives of the surgery, the risks - infection, bleeding, injury other organs, abscess recurrence, bowel leak, remain fecalith,[place], DVT, sepsis, stroke, pt and her understood, they agree with the surgery, pt signed informed consent, I answered all questions, (2) Abdominal abscess: Subjective pt can not transfer for percutaneous drainage base on no bed available on other hospital, ER attend call me for re-evaluate pt, pt is stable, less abdominal pain, no fever, Review of Systems Constitutional: as per Subjective / HPI Eyes: as per Subjective / HPI Respiratory: as per Subjective / HPI Cardiovascular: Additional Comments: abnormal EKG, no chest pain Gastrointestinal: as per Subjective / HPI Genitourinary: as per Subjective / HPI Musculoskeletal: as per Subjective / HPI Neurologic: as per Subjective / HPI Psychiatric: as per Subjective / HPI Endocrine: as per Subjective / HPI Hematologic / Lymphatic: as per Subjective / HPI Physical Exam Constitutional: WD/WN, vitals as above Eyes: PERRL, conjunctivae normal, anicteric sclerae Neck: trachea midline, no thyromegaly Respiratory: normal respiratory effort, lungs clear to auscultation Cardiovascular: RRR, no murmur, no edema Gastrointestinal (Abdomen): soft , some tenderness at RLQ and RUQ , no rebound pain, , no disten, BS + Musculoskeletal: no cyanosis or clubbing, extremities motor strength 5/5 Neurologic: patellar DTR's 2+ bilat, sensation intact Psychiatric: A+Ox3, euthymic affect Results & Data ([place]) Vital Signs (Past 12 Hours) Vital Signs Pulse Resp BP Pulse Ox 04/24/21 09:00 92 H 25 H 121/66 04/24/21 08:25 76 25 H 118/48 L 04/24/21 08:01 74 23 180/82 H 97 04/24/21 07:16 73 24 166/113 H 96 04/24/21 06:00 74 23 96 04/24/21 05:00 78 20 94 04/24/21 04:00 78 23 94 04/24/21 03:00 90 24 94 04/24/21 02:00 87 24 94 04/24/21 01:00 88 25 H 95 04/24/21 00:00 84 23 95 Laboratory Results Abnormal lab results 04/23/21 04/23/21 04/24/21 Range/Units 10:40 10:40 04:49 WBC 16.83 H (4.8-10.8) K/uL RBC 3.59 L (4.2-5.4) M/uL Hgb 11.2 L (12.0-16.0) g/dL Hct 35.0 L (37-47) % RDW Std Deviation 46.6 H (36.4-46.3) fL Plt Count 438 H (130-400) K/uL Neut # (Auto) 14.61 H (1.4-6.5) K/uL Lymph # (Auto) 0.80 L (1.2-3.4) K/uL [place] # (Auto) 1.27 H (0.11-0.59) K/uL Immature Gran # (Auto) 0.04 H (0.00-0.02) K/uL Carbon Dioxide 20 L (21-32) mmol/L BUN 28 H (6-23) mg/dl Creatinine 1.37 H 1.36 H (0.6-1.2) mg/dl BUN/Creatinine Ratio 20.4 H (10-20) Albumin 3.3 L (3.4-5.0) gm/dl
--- NOTE | 2021-04-24 11:04 | History & Physical Bridge Note ---
Date of Service April 24, 2021 History & Physical Bridge Note I have examined the patient, reviewed the History & Physical and in the interval since the performance of the History & Physical I have noted the following changes of clinical significance: no changes noted
[2021-04-24] MEDS ORDERED: fentaNYL citrate 100 MCG/2 ML VIAL ONE ×2 (11:05→13:25)
[2021-04-24] MEDS ORDERED: MIDAZOLAM HCL 1 MG/ML 2ML VIAL ONE (11:05)
[2021-04-24] MEDS ORDERED: VANCOMYCIN HCL 1000MG/20ML VIAL ONE (11:44)
[2021-04-24] MEDS ORDERED: BUPIVACAINE 0.5 % 5 MG/1 ML MPF 30ML VIAL ONE (11:52)
[2021-04-24] MEDS ORDERED: LIDOCAINE 1% LOCAL 20 ML VIAL ONE (11:52)
[2021-04-24] MEDS ORDERED: BACITRACIN OINT 15 GM TUBE ONE (11:52)
[2021-04-24] MEDS ORDERED: ONDANSETRON INJ 2 MG/ML 2 ML VIAL IV PRN ×2 (11:53→18:01)
[2021-04-24] MEDS ORDERED: ATROPINE SULFATE 0.1 MG/ML 10ML SYR IV PRN (11:53)
[2021-04-24] MEDS ORDERED: fentaNYL citrate 100 MCG/2 ML VIAL IV PRN (11:53)
[2021-04-24] MEDS ORDERED: HYDROmorphone INJ 2 MG/ML SYR/VIAL IV PRN (11:53)
[2021-04-24] MEDS ORDERED: ePHEDrine sulfate 50 MG/ML AMP IV PRN (11:53)
--- NOTE | 2021-04-24 11:53 | Anesthesiology Consultation ---
Date of Service April 24, 2021 Assessment & Plan ASA [id number] Proposed Anesthesia Anesthesia Type: General Risk / Benefits Reviewed With: PT / POA / Parent / Guardian, Accepts Plan and Informed Consent Obtained Additional Comments: spoke with patient she states that she had an arrythmia worked up many years ago. per patient work up was normal. she did not know what it was, but she kasper s have a rbbb on ekg,. pt with METS>4. pt denies CHF, ND, CVA. [facility] obtained [facility] and pt in urgent need of surgery History Surgery Operation Date: 04/24/21 14:40 Proposed Procedures p Exploratory Laparoscopy, Possible Open, Drainage of Abdominal Abscess, Possible Appendectomy - Sandra Dunn MD Height/Weight Height: 5 ft 3 in Weight: 94.4 kg Allergies Allergy/AdvReac Type Severity Reaction Status Date / Time No Known Allergies Allergy Verified 04/23/21 15:45 Medications Home Medications Medication Instructions Recorded Confirmed Last Taken Quercetin 500 mg PO QAM 04/23/21 04/23/21 04/22/21 ascorbic acid (vitamin C) 500 mg 500 mg PO QAM 04/23/21 04/23/21 04/22/21 tablet (Vitamin C) aspirin 81 mg tablet,delayed 81 mg PO QPM 04/23/21 04/23/21 04/22/21 release atorvastatin 10 mg tablet (Lipitor) 10 mg PO PM 04/23/21 04/23/21 04/22/21 carvedilol 6.25 mg tablet (Coreg) 6.25 mg PO BID 04/23/21 04/23/21 04/22/21 cholecalciferol (vitamin D3) 50 50 mcg PO QAM 04/23/21 04/23/21 04/22/21 mcg (2,000 unit) capsule (Vitamin D3) hydrochlorothiazide 12.5 mg tablet 12.5 mg PO DAILY PRN 04/23/21 04/23/21 Unknown lisinopril 20 mg tablet 20 mg PO QPM 04/23/21 04/23/21 04/22/21 omega-3 fatty acids 1,000 mg 1,000 mg PO QAM 04/23/21 04/23/21 04/22/21 capsule zinc 50 mg tablet 50 mg PO QAM 04/23/21 04/23/21 04/22/21 Active Medications Generic Name Dose Route Start Last Admin Trade Name Salvatore PRN Reason Stop Dose Admin Carvedilol 6.25 mg 04/23/21 21:00 04/24/21 08:29 Carvedilol 6.25 Mg Tab PO 05/23/21 20:59 6.25 mg BID KEN Administration Piperacillin Sod/Tazobactam 120 mls @ 30 mls/hr 04/23/21 16:00 04/24/21 08:29 Sod 4.5 gm/ Dextrose IV 05/03/21 15:59 30 mls/hr Q8H KEN Administration Protocol Sodium Chloride 500 mls @ 100 mls/hr 04/23/21 15:45 04/24/21 08:19 Nss IV 05/23/21 15:44 Infused .Q5H KEN Infusion Vancomycin HCl 1,000 mg/ 270 mls @ 200 mls/hr 04/24/21 08:00 04/24/21 09:55 Sodium Chloride IV 05/04/21 07:59 Infused Q18H KEN Infusion Lisinopril 20 mg 04/23/21 21:00 04/23/21 21:28 Lisinopril 20 Mg Tab PO 05/23/21 20:59 20 mg HS KEN Administration NPO Date Last Intake of Fluids: 04/22/21 Time Last Intake of Fluids: 18:00 Date Last Intake of Solids: 04/23/21 Time Last Intake of Solids: 08:20 Last Intake of Solids Comment: oral contrast Exercise / Class Metabolic Activity II 4-5 Yardwork/Stairs/Walk up hill Past Anesthesia History No Hx of Anesthesia Complications and No Family Hx of Anesthesia Complications History of PONV No Hx of PONV and No Hx of Motion Sickness Social History Smoking Status: Never smoker Review of Systems denies fever/cough/ colds/ chest pain/ SOB/ BRITTNI denies BRITTNI Physical Exam Vital Signs Last Vital Signs Temp 37.5 C 04/24/21 11:32 Pulse 77 04/24/21 11:32 Resp 18 04/24/21 11:32 BP 133/68 04/24/21 11:32 Pulse Ox 99 04/24/21 11:32 ENMT Mouth: no TMJ abnormality and no dentition abnormality Thyromental Distance: > or= 3.5 Finger Breadths Mallampati Class: III Neck neck extension not limited Respiratory normal respiratory effort; no respiratory distress Auscultation: lungs clear to auscultation bilaterally Cardiovascular Rate/Rhythm: regular rate and regular rhythm Neurologic moves all extremities Psychiatric Orientation: alert and oriented x 3 Testing Laboratory Results 04/23/21 10:40 04/24/21 04:49 04/23/21 10:40 Aerobic Blood Culture - Preliminary Blood No growth in Aerobic bottle after 24 hours. Anaerobic Blood Culture - Preliminary No growth in Anaerobic bottle after 24 hours. Electrocardiogram Date: 04/24/21 Findings: + RBBB
[2021-04-24] MEDS ORDERED: LACTATED RINGER'S 1,000 ML IV SCH (12:15)
[2021-04-24] MEDS ORDERED: LIDOCAINE 2% 2 ML VIAL/AMP(20MG/ML) INFIL ONE (12:34)
[2021-04-24] MEDS ORDERED: GLYCOPYRROLATE 0.2 MG/ML VIAL ONE (12:34)
[2021-04-24] MEDS ORDERED: ROCURONIUM BROMIDE 10 MG/ML 5 ML VIAL IV ONE (12:34)
[2021-04-24] MEDS ORDERED: DEXAMETHASONE SOD INJ 4 MG/ML VIAL ONE (12:34)
[2021-04-24] MEDS ORDERED: PROPOFOL IV EMULSION 10 MG/ML 20 ML VIAL IV ONE (12:34)
[2021-04-24] MEDS ORDERED: NEOSTIGMINE METHYLSULFATE 1 MG/ML 10ML VIAL ONE (12:34)
[2021-04-24] MEDS ORDERED: ONDANSETRON INJ 2 MG/ML 2 ML VIAL ONE (12:34)
--- NOTE | 2021-04-24 14:46 | Post Operative Brief Note ---
Immediate Post Op Note v1 Date of Surgery April 24, 2021 Pre & Post Diagnosis Operation Date: 04/24/21 14:40 Pre-Op Diagnosis: Acute Appendicitis with Rupture, abdominal abscess, Post-Op Diagnosis: Acute Appendicitis with Rupture, abdominal abscess I identified the patient and participated in the time-out.: Yes Procedure Operation Date: 04/24/21 14:40 Actual Procedures p Exploratory Laparoscopy, Drainage of Abdominal Abscess, Placement of Two 10mm Flat Danny Swain Surgical Drain - Sandra Dunn MD Surgeon Sandra Dunn MD Booking Manager NEELA Meng Estimated Blood Loss 30 Findings Consistent with Post-Op Diagnosis multiple abdominal abscess, severe inflammation around appendix, it not feasible to do appendectomy, abdominal abscess culture sent Fluids 1200ml Drains Jacobson Catheter and Other (2 SHUKRI drainage) Anesthesia Type General Complications none Disposition Accompanied Patient To Recovery: Yes
[2021-04-24 15:24] LABS: Basophils # (auto) 0.02 K/uL (0-0.2); Basophils % (auto) 0.1 %; Eosinophils # (auto) 0.02 K/uL (0-0.5); Eosinophils % (auto) 0.1 %; Hemoglobin 9.9 g/dL (12.0-16.0); Immature Granulocytes # (auto) 0.05 K/uL (0.00-0.02); Immature Granulocytes % (auto) 0.3 %; Lymphocytes # (auto) 0.47 K/uL (1.2-3.4); Lymphocytes % (auto) 3.2 %; Mean Corpuscular Hemoglobin 30.9 pg (25-34); Mean Corpuscular Hgb Conc 31.9 g/dL (32-36); Mean Corpuscular Volume 96.9 fL (80-100); Mean Platelet Volume 8.9 fL (7.4-10.4); Monocytes # (auto) 0.37 K/uL (0.11-0.59); Monocytes % (auto) 2.5 %; Neutrophils # (auto) 13.64 K/uL (1.4-6.5); Neutrophils % (auto) 93.8 %; Platelet Count 339 K/uL (130-400); RDW Coefficient of Variation 12.9 % (11.5-14.5); White Blood Count 14.57 K/uL (4.8-10.8)
[2021-04-24 15:43] LABS: BUN Creatinine Ratio 13.3 (10-20); Calcium 8.4 mg/dl (8.5-10.1); Creatinine Clr Calc Pharmacy 40.5 ml/min; Est GFR (Non-African American) 38.9 ml/min; Potassium 4.2 mmol/L (3.5-5.1)
--- NOTE | 2021-04-24 15:58 | Operative Report (OR) ---
DATE OF PROCEDURE: 04/24/2021 PREOPERATIVE DIAGNOSIS: Perforated acute appendicitis with abdominal abscess. POSTOPERATIVE DIAGNOSIS: Perforated acute appendicitis with abdominal abscess. OPERATION: Laparoscopy, drainage of abdominal abscess. SHUKRI drainage x2. SURGEON: Sandra Dunn MD. SOAP PRESS FEEDER: Alexsandra Ledbetter PA-C. ANESTHESIA: General. ESTIMATED BLOOD LOSS: About 30 mL FINDINGS: Multiple abdominal abscess and severe inflammation around the appendix, appendiceal phlegmon, it was not feasible to do appendectomy. COMPLICATIONS: None. INDICATIONS FOR THE PROCEDURE: This is a 75-year-old female who presented to ED with a 2-week history of right lower quadrant pain and the patient had a CT scan diagnosis of perforated acute appendicitis with abscess and at beginning we recommended the patient be transferred to a higher level for percutaneous drainage by the Radiology; however, the patient could not be transferred based on no bed at other hospital and after we talked to the patient before to do the surgery at [facility]. I recommended to do laparoscopy, drainage of abdominal abscess, possible appendectomy, possible open, possible exploratory laparotomy. I did talk to the patient about the benefit, risk, alternate procedure. I indicated the risks may include, but not limited to, such as bleeding, infection, recurrent abscess, sepsis, bowel leak, bowel obstruction, injury to the bone, myocardial infarction, DVT, stroke, even . The patient understands and patient and patient's agreed to proceed with procedure at [facility]. The patient signed informed consent and I answered all questions. DETAILS OF PROCEDURE: After we identified the patient and verified the procedure, we brought the patient to the OR, put the patient in the supine position on the OR table. The patient received SCD on bilateral legs to prevent DVT. Also, patient received 1 gram vancomycin with 4.5 grams Zosyn IV for prophylactic antibiotic. The patient received general anesthesia without difficulty. Also, patient received a Jacobson catheter. The abdomen was prepped and draped in routine sterile fashion. After timeout, I injected the local anesthesia by using 1% lidocaine mixed with 0.5% Marcaine around the umbilicus, then I made a small incision just above umbilicus, opened fascia, opened peritoneum and under direct vision, put a Nathalie trocar in, connected to CO2 to create pneumoperitoneum, flow rate at 6 liters per minute, pressure not more than 14 mmHg. Once we got a nice pneumoperitoneum, we put a camera in, looked around the abdomen, saw on the right side of the abdomen, there was significant inflammation, everything stuck to the right side of the abdominal wall. At this moment, I put one 5 mm trocar on the right side of the abdomen under direct vision and put another two 5 mm trocars on the left lower quadrant area under direct vision. Once all trocars in, we used the suction as grasper to dissection abscess on the right upper quadrant around the liver. There were two abscesses. Once we broke them down the two abscesses, there was some pus came out. We suctioned and sent to abscess fluid culture. Once we cleaned up the right upper quadrant of two abscesses, then we moved on to the right lower quadrant area and we broken down at least two large abscesses on the right lower quadrant and one on the right side abdominal wall. There was some pus came out, we suctioned all the pus; however, at this moment, we found the patient had significant inflammation around the appendix. appendiceal phlegmon, Everything stuck here was difficult to mobilize the appendix because all the colon and small bowel was so fragile, we were about to do more dissection and possibly perforate the bowel and at this moment it was not a feasible to do appendectomy. Then, we used normal saline 1 liter with 1 gram vancomycin to flush abscess of the abdominal wall and rechecked and no bile leak and no injury, so we put two 10 mm SHUKRI drainage on the right lower quadrant area through the 5 mm trocar. Then, we used a 3-0 nylon to fix a SHUKRI drainage on the skin and then we removed all trocars under direct vision. No active bleeding from the trocar site. Pneumoperitoneum was released, then I closed the umbilical incision fascial layer by using 0 Vicryl [id number] x2, closed subcutaneous layer by using 2-0 Vicryl interruptedly, closed skin by using 4-0 Vicryl continuous running, closed another 5 mm trocar site of skin only by using 4-0 Vicryl. Then, we put the dressing on. The patient tolerated the procedure well. All instrument, needle and sponge counts were correct x2 at the end of the case. The patient was transferred to recovery room in stable condition. The abdominal abscess and fluid cultures sent to the labs. After the procedure, I did talk to the patient and the patient's about the OR finding and the procedure we did. Based on significant inflammation around the appendix, we did not do appendectomy as it was not feasible. They understand and I answered all questions. The clinical assistant professor, Alexsandra, was necessary for this procedure. Her role was to hold the camera, retraction and exposure. Job ID: [id number] MTDD
--- NOTE | 2021-04-24 16:46 | Anesthesiology Progress Note ---
Date of Service April 24, 2021 Anesthesia Post Procedure Vital Signs Vital Signs: Temp Pulse Pulse Resp BP BP BP 04/24/21 16:30 63 25 H 132/76 04/24/21 16:15 64 22 127/72 04/24/21 16:00 36.7 C 61 21 130/75 04/24/21 15:50 66 20 125/73 04/24/21 15:40 61 16 130/74 04/24/21 15:30 60 20 128/88 04/24/21 15:20 64 21 133/74 04/24/21 15:10 62 23 141/84 H 04/24/21 15:03 36.0 C L 72 20 144/80 H 04/24/21 11:32 37.5 C 77 18 133/68 04/24/21 11:00 73 23 126/65 04/24/21 10:00 75 24 126/74 04/24/21 09:00 92 H 25 H 121/66 04/24/21 08:25 76 25 H 118/48 L 04/24/21 08:01 74 23 180/82 H 04/24/21 07:16 73 24 166/113 H 04/24/21 06:00 74 23 04/24/21 05:00 78 20 04/24/21 04:00 78 23 04/24/21 03:00 90 24 04/24/21 02:00 87 24 04/24/21 01:00 88 25 H 04/24/21 00:00 84 23 04/23/21 22:00 88 30 H 04/23/21 21:00 88 17 131/72 04/23/21 20:00 92 H 25 H 135/77 04/23/21 19:30 89 27 H 135/73 04/23/21 18:00 92 H 29 H 157/83 H 04/23/21 17:30 82 24 142/82 H 04/23/21 17:00 85 26 H 145/94 H Pulse Ox 04/24/21 16:30 96 04/24/21 16:15 96 04/24/21 16:00 95 04/24/21 15:50 95 04/24/21 15:40 95 04/24/21 15:30 94 04/24/21 15:20 98 04/24/21 15:10 97 04/24/21 15:03 97 04/24/21 11:32 99 04/24/21 11:00 95 04/24/21 10:00 96 04/24/21 09:00 04/24/21 08:25 04/24/21 08:01 97 04/24/21 07:16 96 04/24/21 06:00 96 04/24/21 05:00 94 04/24/21 04:00 94 04/24/21 03:00 94 04/24/21 02:00 94 04/24/21 01:00 95 04/24/21 00:00 95 04/23/21 22:00 94 04/23/21 21:00 95 04/23/21 20:00 94 04/23/21 19:30 95 04/23/21 18:00 95 04/23/21 17:30 95 04/23/21 17:00 96 Pain Intensity Abdomen: Pain Intensity: 2 Transfer of Care Handoff Completed per policy Notes Mental Status: alert / awake / arousable and participated in evaluation Patient Amnestic to Procedure: Yes Nausea / Vomiting: adequately controlled Pain: adequately controlled Airway Patency, RR, SpO2: stable & adequate BP & HR: stable & adequate Hydration State: stable & adequate Anesthetic Complications: no major complications apparent and Pt Satisfied with anesthetic care
[2021-04-24] MEDS ORDERED: QUERCETIN 500 MG PO SCH (18:01)
[2021-04-24] MEDS ORDERED: NON-FORMULARY MEDICATION (Zinc 50 mg Tablet) PO SCH (18:01)
[2021-04-24] MEDS ORDERED: hydroCHLOROthiazide 25 MG TAB PO PRN (18:01)
[2021-04-24] MEDS ORDERED: OMEGA PO SCH (18:01)
[2021-04-24] MEDS ORDERED: FATTY ACIDS PO SCH (18:01)
[2021-04-24] MEDS ORDERED: NON-FORMULARY MEDICATION (Cholecalciferol (Vitamin D3) [Vitamin D3] 50 mcg (2,000 unit) Ca PO SCH (18:01)
[2021-04-24] MEDS: LACTATED RINGER'S 1,000 ML IV SCH (20:44)
[2021-04-24] MEDS: oxyCODONE/ACETAMINOPHEN 5mg/325mg TAB PO PRN (21:09)
[2021-04-24] MEDS: lisinopril 20 MG TAB PO SCH (21:11)
[2021-04-24] MEDS: ASPIRIN 81 MG ECTAB PO SCH (21:37)
[2021-04-24] MEDS: ATORVASTATIN 10 MG TAB PO SCH (21:37)
[2021-04-25] MEDS: VANCOMYCIN HCL 1,000 MG in SODIUM CHLORIDE 0.9% 250 ML IV SCH ×2 (02:35→20:16)
[2021-04-25 07:00] LABS: Basophils # (auto) 0.01 K/uL (0-0.2); Basophils % (auto) 0.1 %; Eosinophils # (auto) 0.01 K/uL (0-0.5); Eosinophils % (auto) 0.1 %; Hematocrit (blood only) 29.6 % (37-47); Hemoglobin 9.3 g/dL (12.0-16.0); Immature Granulocytes # (auto) 0.04 K/uL (0.00-0.02); Immature Granulocytes % (auto) 0.2 %; Lymphocytes # (auto) 1.13 K/uL (1.2-3.4); Mean Corpuscular Hemoglobin 30.6 pg (25-34); Mean Corpuscular Hgb Conc 31.4 g/dL (32-36); Mean Corpuscular Volume 97.4 fL (80-100); Mean Platelet Volume 9.1 fL (7.4-10.4); Monocytes # (auto) 0.57 K/uL (0.11-0.59); Monocytes % (auto) 3.5 %; Neutrophils # (auto) 14.48 K/uL (1.4-6.5); Neutrophils % (auto) 89.1 %; Platelet Count 415 K/uL (130-400); RDW Coefficient of Variation 13.2 % (11.5-14.5); RDW Standard Deviation 46.5 fL (36.4-46.3); Red Blood Count 3.04 M/uL (4.2-5.4); White Blood Count 16.24 K/uL (4.8-10.8)
[2021-04-25] MEDS: SODIUM CHLORIDE 0.9% 500 ML IV SCH ×2 (07:08→07:09)
[2021-04-25 07:29] LABS: Albumin Globulin Ratio 0.9 (0.9-2); Albumin Level 2.6 gm/dl (3.4-5.0); BUN Creatinine Ratio 13.2 (10-20); Bilirubin,Total 0.4 mg/dl (0.2-1.0); Calcium 8.3 mg/dl (8.5-10.1); Creatinine Clr Calc Pharmacy 40.3 ml/min; Est GFR (African American) 44.6 ml/min; Est GFR (Non-African American) 38.5 ml/min; Potassium 3.9 mmol/L (3.5-5.1); Total Protein 5.6 gm/dl (6.0-8.3)
[2021-04-25] MEDS: carvediloL 6.25 MG TAB PO SCH ×2 (08:08→20:09)
[2021-04-25] MEDS: CHOLECALCIFEROL 1,000 UNITS 25 MCG TAB PO SCH (08:08)
[2021-04-25] MEDS: ZINC SULFATE 220 MG CAPSULE PO SCH (08:08)
[2021-04-25] MEDS: ASCORBIC ACID 500 MG TAB PO SCH (08:09)
[2021-04-25] MEDS: ENOXAPARIN INJ 40 MG/0.4 ML SYR SQ SCH (08:30)
[2021-04-25] MEDS: OMEGA-3 (PURIFIED FISH OIL) 1 GM CAP PO SCH ×3 (08:30→20:10)
[2021-04-25] MEDS: PIPERACILLIN/TAZOBACTAM 4.5 GM in DEXTROSE 5% 100 ML IV SCH ×3 (08:30→23:24)
[2021-04-25] MEDS: oxyCODONE/ACETAMINOPHEN 5mg/325mg TAB PO PRN (08:48)
[2021-04-25] MEDS ORDERED: ASCORBIC ACID 500 MG TAB PO SCH (09:00)
[2021-04-25] MEDS ORDERED: QUERCETIN 500 MG PO SCH (09:00)
--- NOTE | 2021-04-25 09:38 | Surgery Progress Note ---
Date of Service April 25, 2021 Assessment & Plan (1) Acute appendicitis with rupture: (2) Abdominal abscess: Plan: POD # 1 s/p exploratory laparoscopy , drainage of intra-abdominal abscesses and placement of two surgical drains -afebrile, vss - postop pain controlled - leukocytosis of 16k (16k preop) - no n/v Plan: Continue pain management as needed Continue IV fluids Continue IV Zosyn and Vancomycin, awaiting sensitivites continue terrie drains to bulb suction Will revert back to npo except ice chips and sips Lovenox and SCDs for dvt prophylaxis Incentive spirometery remove doyle catheter OOB to chair and then ambulate repeat am labs Dr. Dunn was present during my examination and agrees with above. Admission and Anticipated Discharge Date Admission Date: April 24, 2021 Subjective feeling well abdominal pain only when moved up in bed by nursing staff and when lying on her right side no nausea or vomiting no chest pain or shortness of breath had Percocet for pain, going to get up to chair Physical Exam Constitutional: WD/WN, vitals as above no acute distress and not ill appearing Neck: normal visual inspection and trachea midline Respiratory: normal respiratory effort; no respiratory distress and no labored breathing Gastrointestinal (Abdomen): Inspection/Auscultation: abdomen normal to inspection, + abdominal surgical incision (covered with dressings), + abdominal surgical drain present (two surgical drains with serosanguineous output) and + hypoactive bowel sounds; abdomen not distended and + abnormal bowel sounds Percussion/Palpation: + abdomen tender (At incision sites and drain sites and right lateral abdomen) and abdomen soft; no guarding and abdomen not rigid Skin: no rashes, warm and dry Psychiatric: A+Ox3, euthymic affect Results & Data ([facility]) Vital Signs (Past 12 Hours) Vital Signs Temp Pulse Pulse Resp BP BP Pulse Ox 04/25/21 07:07 36.7 C 74 19 118/74 96 04/25/21 03:00 36.4 C L 75 15 106/67 95 04/25/21 00:00 82 04/24/21 23:19 37.2 C 83 16 104/67 93 04/24/21 21:52 37 C 84 79 15 127/73 93 Laboratory Results 04/25/21 04/25/21 04/24/21 Range/Units 06:14 06:14 15:11 WBC 16.24 H (4.8-10.8) K/uL RBC 3.04 L (4.2-5.4) M/uL Hgb 9.3 L (12.0-16.0) g/dL Hct 29.6 L (37-47) % MCV 97.4 (80-100) fL MCH 30.6 (25-34) pg MCHC 31.4 L (32-36) g/dL RDW Std Deviation 46.5 H (36.4-46.3) fL RDW Coeff of Fatoumata 13.2 (11.5-14.5) % Plt Count 415 H (130-400) K/uL MPV 9.1 (7.4-10.4) fL Immature Gran % (Auto) 0.2 % Neut % (Auto) 89.1 % Lymph % (Auto) 7.0 % [place]ance % (Auto) 3.5 % Eos % (Auto) 0.1 % Baso % (Auto) 0.1 % Neut # (Auto) 14.48 H (1.4-6.5) K/uL Lymph # (Auto) 1.13 L (1.2-3.4) K/uL Nance # (Auto) 0.57 (0.11-0.59) K/uL Eos # (Auto) 0.01 (0-0.5) K/uL Baso # (Auto) 0.01 (0-0.2) K/uL Immature Gran # (Auto) 0.04 H (0.00-0.02) K/uL Sodium 138 139 (136-145) mmol/L Potassium 3.9 4.2 (3.5-5.1) mmol/L Chloride 109 H 110 H (98-107) mmol/L Carbon Dioxide 20 L 21 (21-32) mmol/L Anion Gap 9 8 (3-11) BUN 18 18 (6-23) mg/dl Creatinine 1.36 H 1.35 H (0.6-1.2) mg/dl Est Cr Clr Drug Dosing 40.3 40.5 ml/min Est GFR ( Amer) 44.6 45.0 ml/min Est GFR (Non-Af Amer) 38.5 38.9 ml/min BUN/Creatinine Ratio 13.2 13.3 (10-20) Glucose 83 84 (70-99(Fasting)) mg/dl Calcium 8.3 L 8.4 L (8.5-10.1) mg/dl Total Bilirubin 0.4 (0.2-1.0) mg/dl AST 15 (13-39) U/L ALT 14 (7-52) U/L Alkaline Phosphatase 70 (34-104) U/L Total Protein 5.6 L (6.0-8.3) gm/dl Albumin 2.6 L (3.4-5.0) gm/dl Globulin 3.0 (2.5-4.0) gm/dl Albumin/Globulin Ratio 0.9 (0.9-2) SARS-CoV-2, RNA, NAAT 04/24/21 04/23/21 Range/Units 15:11 10:40 WBC 14.57 H (4.8-10.8) K/uL RBC 3.20 L (4.2-5.4) M/uL Hgb 9.9 L (12.0-16.0) g/dL Hct 31.0 L (37-47) % MCV 96.9 (80-100) fL MCH 30.9 (25-34) pg MCHC 31.9 L (32-36) g/dL RDW Std Deviation 46.0 (36.4-46.3) fL RDW Coeff of Fatoumata 12.9 (11.5-14.5) % Plt Count 339 (130-400) K/uL MPV 8.9 (7.4-10.4) fL Immature Gran % (Auto) 0.3 % Neut % (Auto) 93.8 % Lymph % (Auto) 3.2 % Nance % (Auto) 2.5 % Eos % (Auto) 0.1 % Baso % (Auto) 0.1 % Neut # (Auto) 13.64 H (1.4-6.5) K/uL Lymph # (Auto) 0.47 L (1.2-3.4) K/uL Nance # (Auto) 0.37 (0.11-0.59) K/uL Eos # (Auto) 0.02 (0-0.5) K/uL Baso # (Auto) 0.02 (0-0.2) K/uL Immature Gran # (Auto) 0.05 H (0.00-0.02) K/uL Sodium (136-145) mmol/L Potassium (3.5-5.1) mmol/L Chloride (98-107) mmol/L Carbon Dioxide (21-32) mmol/L Anion Gap (3-11) BUN (6-23) mg/dl Creatinine (0.6-1.2) mg/dl Est Cr Clr Drug Dosing ml/min Est GFR ( Amer) ml/min Est GFR (Non-Af Amer) ml/min BUN/Creatinine Ratio (10-20) Glucose (70-99(Fasting)) mg/dl Calcium (8.5-10.1) mg/dl Total Bilirubin (0.2-1.0) mg/dl AST (13-39) U/L ALT (7-52) U/L Alkaline Phosphatase (34-104) U/L Total Protein (6.0-8.3) gm/dl Albumin (3.4-5.0) gm/dl Globulin (2.5-4.0) gm/dl Albumin/Globulin Ratio (0.9-2) SARS-CoV-2, RNA, NAAT Cancelled Microbiology 04/24/21 13:09 Gram Stain - Final Abdomen 04/23/21 11:39 Aerobic Blood Culture - Preliminary Blood No growth in Aerobic bottle after 24 hours. Anaerobic Blood Culture - Preliminary No growth in Anaerobic bottle after 24 hours. 04/23/21 10:40 Aerobic Blood Culture - Preliminary Blood No growth in Aerobic bottle after 24 hours. Anaerobic Blood Culture - Preliminary No growth in Anaerobic bottle after 24 hours.
[2021-04-25] MEDS: LACTATED RINGER'S 1,000 ML IV SCH ×2 (10:17→20:16)
[2021-04-25] MEDS ORDERED: Nursing to Pharmacy Communication SCH (17:30)
[2021-04-25] MEDS: lisinopril 20 MG TAB PO SCH (20:09)
[2021-04-25] MEDS: ASPIRIN 81 MG ECTAB PO SCH (20:10)
[2021-04-25] MEDS: ATORVASTATIN 10 MG TAB PO SCH (20:10)
[2021-04-26] MEDS: LACTATED RINGER'S 1,000 ML IV SCH ×2 (06:22→19:22)
[2021-04-26 06:29] LABS: Basophils # (auto) 0.05 K/uL (0-0.2); Basophils % (auto) 0.6 %; Eosinophils # (auto) 0.11 K/uL (0-0.5); Eosinophils % (auto) 1.3 %; Hematocrit (blood only) 29.8 % (37-47); Hemoglobin 9.4 g/dL (12.0-16.0); Immature Granulocytes # (auto) 0.02 K/uL (0.00-0.02); Immature Granulocytes % (auto) 0.2 %; Lymphocytes # (auto) 1.07 K/uL (1.2-3.4); Lymphocytes % (auto) 12.2 %; Mean Corpuscular Hemoglobin 30.6 pg (25-34); Mean Corpuscular Hgb Conc 31.5 g/dL (32-36); Mean Corpuscular Volume 97.1 fL (80-100); Mean Platelet Volume 9.1 fL (7.4-10.4); Monocytes # (auto) 0.74 K/uL (0.11-0.59); Monocytes % (auto) 8.4 %; Neutrophils # (auto) 6.77 K/uL (1.4-6.5); Neutrophils % (auto) 77.3 %; Platelet Count 444 K/uL (130-400); RDW Coefficient of Variation 13.2 % (11.5-14.5); RDW Standard Deviation 46.9 fL (36.4-46.3); Red Blood Count 3.07 M/uL (4.2-5.4); White Blood Count 8.76 K/uL (4.8-10.8)
[2021-04-26 06:52] LABS: Calcium 8.4 mg/dl (8.5-10.1); Creatinine Clr Calc Pharmacy 42.4 ml/min; Est GFR (African American) 47.6 ml/min; Potassium 3.7 mmol/L (3.5-5.1)
[2021-04-26] MEDS: carvediloL 6.25 MG TAB PO SCH ×2 (08:19→19:24)
[2021-04-26] MEDS: ASCORBIC ACID 500 MG TAB PO SCH (08:20)
[2021-04-26] MEDS: PIPERACILLIN/TAZOBACTAM 4.5 GM in DEXTROSE 5% 100 ML IV SCH ×2 (08:20→16:33)
[2021-04-26] MEDS: ZINC SULFATE 220 MG CAPSULE PO SCH (08:20)
[2021-04-26] MEDS: CHOLECALCIFEROL 1,000 UNITS 25 MCG TAB PO SCH (08:20)
[2021-04-26] MEDS: [UNRECOGNIZED DRUG - OTHER] PO SCH (08:23)
[2021-04-26] MEDS ORDERED: QUERCETIN 500 MG PO SCH (09:00)
[2021-04-26] MEDS: ENOXAPARIN INJ 40 MG/0.4 ML SYR SQ SCH (11:46)
[2021-04-26] MEDS ORDERED: VANCOMYCIN TROUGH ONE ×2 (13:30→14:00)
--- NOTE | 2021-04-26 13:46 | Surgery Progress Note ---
Date of Service April 26, 2021 Assessment & Plan (1) Acute appendicitis with rupture: (2) Abdominal abscess: Plan: POD # 2 s/p exploratory laparoscopy , drainage of intra-abdominal abscesses and placement of two surgical drains -afebrile, vss - postop pain controlled - leukocytosis resolved (16k preop) - no n/v - + bowel function Plan: Continue pain management as needed Continue IV fluids Clear liquids for today Continue IV Zosyn and Vancomycin, awaiting sensitivities continue terrie drains to bulb suction, will go home with surgical drains Lovenox and SCDs for dvt prophylaxis Incentive spirometry OOB to chair and then ambulate repeat am labs Dr. Chavez covering this weekend Dr. Dunn has seen and examined pt, agrees with above. Admission and Anticipated Discharge Date Admission Date: April 24, 2021 Subjective feeling better today, slept better last night minimal pain, more so when up and moving around no nausea or vomiting passing gas and had small liquid/soft bowel movement early this morning Physical Exam Constitutional: WD/WN, vitals as above no acute distress and not ill appearing Neck: normal visual inspection and trachea midline Respiratory: normal respiratory effort; no respiratory distress Gastrointestinal (Abdomen): Inspection/Auscultation: abdomen normal to inspection and + abdominal surgical drain present (serosanguineous ); abdomen not distended Percussion/Palpation: + abdomen tender (at right lateral abdomen and at incision sites) and abdomen soft; no guarding and abdomen not rigid Skin: no rashes, warm and dry Psychiatric: A+Ox3, euthymic affect Results & Data ([facility]) Vital Signs (Past 12 Hours) Vital Signs Temp Pulse Pulse Resp BP Pulse Ox 04/26/21 11:00 36.8 C 70 18 143/82 H 93 04/26/21 08:00 83 04/26/21 07:00 36.4 C L 86 18 174/82 H 93 04/26/21 03:00 36.6 C 93 H 15 153/83 H 94 Laboratory Results 04/26/21 04/26/21 Range/Units 05:29 05:29 WBC 8.76 (4.8-10.8) K/uL RBC 3.07 L (4.2-5.4) M/uL Hgb 9.4 L (12.0-16.0) g/dL Hct 29.8 L (37-47) % MCV 97.1 (80-100) fL MCH 30.6 (25-34) pg MCHC 31.5 L (32-36) g/dL RDW Std Deviation 46.9 H (36.4-46.3) fL RDW Coeff of Fatoumata 13.2 (11.5-14.5) % Plt Count 444 H (130-400) K/uL MPV 9.1 (7.4-10.4) fL Immature Gran % (Auto) 0.2 % Neut % (Auto) 77.3 % Lymph % (Auto) 12.2 % [place] % (Auto) 8.4 % Eos % (Auto) 1.3 % Baso % (Auto) 0.6 % Neut # (Auto) 6.77 H (1.4-6.5) K/uL Lymph # (Auto) 1.07 L (1.2-3.4) K/uL [place] # (Auto) 0.74 H (0.11-0.59) K/uL Eos # (Auto) 0.11 (0-0.5) K/uL Baso # (Auto) 0.05 (0-0.2) K/uL Immature Gran # (Auto) 0.02 (0.00-0.02) K/uL Sodium 138 (136-145) mmol/L Potassium 3.7 (3.5-5.1) mmol/L Chloride 110 H (98-107) mmol/L Carbon Dioxide 22 (21-32) mmol/L Anion Gap 6 (3-11) BUN 18 (6-23) mg/dl Creatinine 1.29 H (0.6-1.2) mg/dl Est Cr Clr Drug Dosing 42.4 ml/min Est GFR ( Amer) 47.6 ml/min Est GFR (Non-Af Amer) 41.0 ml/min BUN/Creatinine Ratio 14.0 (10-20) Glucose 79 (70-99(Fasting)) mg/dl Calcium 8.4 L (8.5-10.1) mg/dl Microbiology 04/24/21 13:09 Gram Stain - Final Abdomen Aerobic and Anaerobic Culture - Preliminary Escherichia coli 04/23/21 11:39 Aerobic Blood Culture - Preliminary Blood No growth in Aerobic bottle after 48 hours. Anaerobic Blood Culture - Preliminary No growth in Anaerobic bottle after 48 hours. 04/23/21 10:40 Aerobic Blood Culture - Preliminary Blood No growth in Aerobic bottle after 48 hours. Anaerobic Blood Culture - Preliminary No growth in Anaerobic bottle after 48 hours.
[2021-04-26] MEDS ORDERED: ACETAMINOPHEN 325 MG TAB PO PRN (14:15)
[2021-04-26] MEDS: ATORVASTATIN 10 MG TAB PO SCH (19:24)
[2021-04-26] MEDS: OMEGA-3 (PURIFIED FISH OIL) 1 GM CAP PO SCH (19:24)
[2021-04-26] MEDS: ASPIRIN 81 MG ECTAB PO SCH (19:24)
[2021-04-26] MEDS: lisinopril 20 MG TAB PO SCH (19:24)
[2021-04-27] MEDS: PIPERACILLIN/TAZOBACTAM 4.5 GM in DEXTROSE 5% 100 ML IV SCH ×4 (00:06→23:35)
--- NOTE | 2021-04-27 05:25 | Surgery Progress Note ---
Date of Service April 27, 2021 Assessment & Plan (1) Acute appendicitis with rupture: Plan: Postop day #3 exploratory laparotomy with drainage of abdominal abscess Blood cultures checked at time of mission are negative for growth Intraoperative cultures grew E. coli which is sensitive to Zosyn. We will continue Zosyn while in hospital. Patient is also receiving vancomycin. Will discuss with attending if this can be discontinued due to culture results. Continue analgesics Continue antiemetics Continue liquid diet with consideration of advancing slowly Continue IV fluids until oral intake deemed to be adequate Increase activity as able Lovenox is in place for DVT prevention as above. feeling well overall. wants more to eat. SHUKRI looks good will advance diet. potential discharge tomorrow. Admission and Anticipated Discharge Date Admission Date: April 24, 2021 Subjective Patient is resting comfortably in bed. She denies any nausea vomiting. Since her surgery she reports passing flatus and having a bowel movement. She is currently tolerating liquid diet. Physical Exam Gastrointestinal (Abdomen): Abdomen is soft and nondistended. Bowel sounds are present. SHUKRI drains are in place. They have drained 10 and 15 cc of serosanguineous fluid respectively. Patient has appropriate pain near surgical incisions. Results & Data ([facility]) Vital Signs (Past 12 Hours) Vital Signs Temp Pulse Pulse Resp BP Pulse Ox 04/27/21 03:00 36.8 C 82 15 144/85 H 95 04/26/21 23:01 69 04/26/21 23:00 36.5 C 68 18 148/85 H 98 04/26/21 19:00 36.6 C 76 20 153/75 H 96 PG Care Time/CCT Total # of Minutes Spent Total Time Spent with Patient: Total time spent is greater than 50% in coordination of care (as documented) at patient's floor/unit and/or counseling patient: Coding Level of Care Code None Diagnoses Acute appendicitis with rupture K35.32
[2021-04-27 06:11] LABS: Basophils # (auto) 0.03 K/uL (0-0.2); Basophils % (auto) 0.4 %; Eosinophils % (auto) 1.2 %; Immature Granulocytes # (auto) 0.02 K/uL (0.00-0.02); Immature Granulocytes % (auto) 0.2 %; Lymphocytes # (auto) 1.16 K/uL (1.2-3.4); Lymphocytes % (auto) 14.3 %; Mean Corpuscular Hemoglobin 30.8 pg (25-34); Mean Corpuscular Hgb Conc 32.1 g/dL (32-36); Mean Corpuscular Volume 95.9 fL (80-100); Monocytes # (auto) 0.73 K/uL (0.11-0.59); Neutrophils # (auto) 6.08 K/uL (1.4-6.5); Neutrophils % (auto) 74.9 %; Platelet Count 417 K/uL (130-400); RDW Coefficient of Variation 13.1 % (11.5-14.5); RDW Standard Deviation 46.1 fL (36.4-46.3); Red Blood Count 2.92 M/uL (4.2-5.4); White Blood Count 8.12 K/uL (4.8-10.8)
[2021-04-27 06:45] LABS: Calcium 8.4 mg/dl (8.5-10.1); Creatinine Clr Calc Pharmacy 49.9 ml/min; Est GFR (African American) 54.7 ml/min; Est GFR (Non-African American) 47.2 ml/min; Potassium 3.6 mmol/L (3.5-5.1)
[2021-04-27] MEDS: LACTATED RINGER'S 1,000 ML IV SCH (08:31)
[2021-04-27] MEDS: carvediloL 6.25 MG TAB PO SCH ×2 (08:33→21:37)
[2021-04-27] MEDS: CHOLECALCIFEROL 1,000 UNITS 25 MCG TAB PO SCH (08:33)
[2021-04-27] MEDS: ZINC SULFATE 220 MG CAPSULE PO SCH (08:33)
[2021-04-27] MEDS: ASCORBIC ACID 500 MG TAB PO SCH (08:34)
[2021-04-27] MEDS: [UNRECOGNIZED DRUG - OTHER] PO SCH (08:34)
[2021-04-27] MEDS: ENOXAPARIN INJ 40 MG/0.4 ML SYR SQ SCH (09:14)
[2021-04-27] MEDS: lisinopril 20 MG TAB PO SCH (21:37)
[2021-04-27] MEDS: OMEGA-3 (PURIFIED FISH OIL) 1 GM CAP PO SCH (21:37)
[2021-04-27] MEDS: ASPIRIN 81 MG ECTAB PO SCH (21:37)
[2021-04-27] MEDS: ATORVASTATIN 10 MG TAB PO SCH (21:37)
[2021-04-28 06:08] LABS: Basophils # (auto) 0.03 K/uL (0-0.2); Basophils % (auto) 0.5 %; Eosinophils # (auto) 0.14 K/uL (0-0.5); Eosinophils % (auto) 2.2 %; Hemoglobin 9.2 g/dL (12.0-16.0); Immature Granulocytes # (auto) 0.04 K/uL (0.00-0.02); Immature Granulocytes % (auto) 0.6 %; Lymphocytes # (auto) 1.15 K/uL (1.2-3.4); Lymphocytes % (auto) 17.8 %; Mean Corpuscular Hemoglobin 30.7 pg (25-34); Mean Corpuscular Hgb Conc 31.7 g/dL (32-36); Mean Corpuscular Volume 96.7 fL (80-100); Mean Platelet Volume 8.8 fL (7.4-10.4); Monocytes # (auto) 0.57 K/uL (0.11-0.59); Monocytes % (auto) 8.8 %; Neutrophils # (auto) 4.53 K/uL (1.4-6.5); Neutrophils % (auto) 70.1 %; Platelet Count 405 K/uL (130-400); RDW Coefficient of Variation 12.9 % (11.5-14.5); RDW Standard Deviation 45.8 fL (36.4-46.3); White Blood Count 6.46 K/uL (4.8-10.8)
[2021-04-28 06:34] LABS: BUN Creatinine Ratio 9.3 (10-20); Calcium 8.4 mg/dl (8.5-10.1); Creatinine Clr Calc Pharmacy 48.7 ml/min; Est GFR (Non-African American) 45.7 ml/min; Potassium 3.4 mmol/L (3.5-5.1)
--- NOTE | 2021-04-28 06:35 | Surgery Progress Note ---
Date of Service April 28, 2021 Assessment & Plan (1) Acute appendicitis with rupture: Plan: Postop day #4 exploratory laparotomy with drainage of abdominal abscess Blood cultures checked at time of admission remain negative for growth to date Intraoperative cultures grew E. coli which is sensitive to Zosyn. We will continue Zosyn while in hospital. Patient previously receiving vancomycin but this was discontinued due to culture results Continue analgesics Continue antiemetics Continue full liquid diet for the present time. We will not advance at this time due to patient reporting having a poor appetite Continue to activity as able Lovenox is in place for DVT prevention as above. feeling ok. would like to try more to eat prior to d/c. no acute issues. SHUKRI scant. will advance diet with plans per possible d/c tomorrow. will have primary surgeon determine SHUKRI removal. Admission and Anticipated Discharge Date Admission Date: April 24, 2021 Subjective Patient is resting comfortably in bed. She reports she had a decent night. She says she is tolerated full liquid diet yesterday although admits she does not have much in the way of appetite and does not feel very hungry at the present time. She does report having a bowel movement last night. She denies any nausea vomiting. She denies any fevers, shakes, chills. Physical Exam Gastrointestinal (Abdomen): Abdomen is soft and nondistended. Bowel sounds are present. She is appropriate pain near surgical incisions. Patient has [address] which have drained 20 and 10 cc of serosanguineous fluid last shift. Results & Data ([facility]) Vital Signs (Past 12 Hours) Vital Signs Temp Pulse Pulse Resp BP Pulse Ox 04/28/21 03:00 36.4 C L 72 16 142/81 H 94 04/27/21 23:06 64 04/27/21 23:00 36.8 C 73 18 148/82 H 95 04/27/21 19:00 36.9 C 76 20 144/75 H 93 PG Care Time/CCT Total # of Minutes Spent Total Time Spent with Patient: Total time spent is greater than 50% in coordination of care (as documented) at patient's floor/unit and/or counseling patient: Coding Level of Care Code None Diagnoses Acute appendicitis with rupture K35.32
[2021-04-28] MEDS: ASCORBIC ACID 500 MG TAB PO SCH (08:04)
[2021-04-28] MEDS: carvediloL 6.25 MG TAB PO SCH ×2 (08:04→20:35)
[2021-04-28] MEDS: CHOLECALCIFEROL 1,000 UNITS 25 MCG TAB PO SCH (08:05)
[2021-04-28] MEDS: ZINC SULFATE 220 MG CAPSULE PO SCH (08:05)
[2021-04-28] MEDS: [UNRECOGNIZED DRUG - OTHER] PO SCH (08:05)
[2021-04-28] MEDS: PIPERACILLIN/TAZOBACTAM 4.5 GM in DEXTROSE 5% 100 ML IV SCH ×3 (08:10→23:30)
[2021-04-28] MEDS: ENOXAPARIN INJ 40 MG/0.4 ML SYR SQ SCH (10:58)
[2021-04-28] MEDS: ATORVASTATIN 10 MG TAB PO SCH (20:35)
[2021-04-28] MEDS: lisinopril 20 MG TAB PO SCH (20:35)
[2021-04-28] MEDS: OMEGA-3 (PURIFIED FISH OIL) 1 GM CAP PO SCH (20:35)
[2021-04-28] MEDS: ASPIRIN 81 MG ECTAB PO SCH (20:35)
[2021-04-29] MEDS: ASCORBIC ACID 500 MG TAB PO SCH (08:04)
[2021-04-29] MEDS: ZINC SULFATE 220 MG CAPSULE PO SCH (08:04)
[2021-04-29] MEDS: [UNRECOGNIZED DRUG - OTHER] PO SCH (08:04)
[2021-04-29] MEDS: CHOLECALCIFEROL 1,000 UNITS 25 MCG TAB PO SCH (08:04)
[2021-04-29] MEDS: carvediloL 6.25 MG TAB PO SCH ×2 (08:04→20:44)
[2021-04-29] MEDS: PIPERACILLIN/TAZOBACTAM 4.5 GM in DEXTROSE 5% 100 ML IV SCH ×3 (08:07→23:41)
[2021-04-29] MEDS: ENOXAPARIN INJ 40 MG/0.4 ML SYR SQ SCH (10:51)
--- NOTE | 2021-04-29 11:55 | Surgery Progress Note ---
Date of Service April 29, 2021 Assessment & Plan (1) Acute appendicitis with rupture: (2) Abdominal abscess: Plan: POD # 2 s/p exploratory laparoscopy , drainage of intra-abdominal abscesses and placement of two surgical drains -afebrile, vss - postop pain controlled - leukocytosis resolved (16k preop) - no n/v - + bowel function Plan: Continue pain management as needed Continue IV fluids Clear liquids for today Continue IV Zosyn and Vancomycin, awaiting sensitivities continue terrie drains to bulb suction, will go home with surgical drains Lovenox and SCDs for dvt prophylaxis Incentive spirometry OOB to chair and then ambulate repeat am labs Dr. Chavez covering this weekend Dr. Dunn has seen and examined pt, agrees with above. 04/29/2021 11:59AM Dr. dunn POD # 2 s/p exploratory laparoscopy , drainage of intra-abdominal abscesses and placement of two surgical drains -afebrile, vss - no abdominal apin, OOB - continue iv antibiotic, - no n/v - + bowel function, tolerated regular diet, possible D/C home with TERRIE and po antibiotic, Cipro + flagyl, for 10 days, will F/U, Admission and Anticipated Discharge Date Admission Date: April 24, 2021 Subjective Patient is resting comfortably in bed. She reports she had a decent night. She says she is tolerated full liquid diet yesterday although admits she does not have much in the way of appetite and does not feel very hungry at the present time. She does report having a bowel movement last night. She denies any nausea vomiting. She denies any fevers, shakes, chills. 04/29/2021 11:56AM Dr. Dunn F/U S/P laparoscopic drainage abdominal abscess, POD 5, pt is doing fine, no abdominal pain, no fever, no diarrhea, tolerated diet, TERRIE, 20 ml each, cloud color, Review of Systems Constitutional: as per Subjective / HPI Eyes: as per Subjective / HPI Respiratory: as per Subjective / HPI Cardiovascular: Additional Comments: abnormal EKG, no chest pain Gastrointestinal: as per Subjective / HPI Genitourinary: as per Subjective / HPI Musculoskeletal: as per Subjective / HPI Neurologic: as per Subjective / HPI Psychiatric: as per Subjective / HPI Endocrine: as per Subjective / HPI Hematologic / Lymphatic: as per Subjective / HPI Physical Exam Constitutional: WD/WN, vitals as above Eyes: PERRL, conjunctivae normal, anicteric sclerae Neck: trachea midline, no thyromegaly Respiratory: normal respiratory effort, lungs clear to auscultation Cardiovascular: RRR, no murmur, no edema Gastrointestinal (Abdomen): soft, NT, Nd, TERRIE intact, Musculoskeletal: no cyanosis or clubbing, extremities motor strength 5/5 Neurologic: patellar DTR's 2+ bilat, sensation intact Psychiatric: A+Ox3, euthymic affect Results & Data ([facility]) Vital Signs (Past 12 Hours) Vital Signs Temp Pulse Pulse Resp BP Pulse Ox 04/29/21 08:00 57 L 04/29/21 07:30 36.7 C 71 19 154/86 H 96 04/29/21 02:45 36.8 C 86 15 158/85 H 93 04/28/21 23:59 82 Laboratory Results Abnormal Labs 04/23/21 04/23/21 04/24/21 10:40 10:40 04:49 WBC 16.83 H RBC 3.59 L Hgb 11.2 L Hct 35.0 L MCHC RDW Std Deviation 46.6 H Plt Count 438 H Neut # (Auto) 14.61 H Lymph # (Auto) 0.80 L [place] # (Auto) 1.27 H Immature Gran # (Auto) 0.04 H Potassium Chloride Carbon Dioxide 20 L BUN 28 H Creatinine 1.37 H 1.36 H BUN/Creatinine Ratio 20.4 H Calcium Total Protein Albumin 3.3 L 04/24/21 04/24/21 04/25/21 15:11 15:11 06:14 WBC 14.57 H RBC 3.20 L Hgb 9.9 L Hct 31.0 L MCHC 31.9 L RDW Std Deviation Plt Count Neut # (Auto) 13.64 H Lymph # (Auto) 0.47 L [place] # (Auto) Immature Gran # (Auto) 0.05 H Potassium Chloride 110 H 109 H Carbon Dioxide 20 L BUN Creatinine 1.35 H 1.36 H BUN/Creatinine Ratio Calcium 8.4 L 8.3 L Total Protein 5.6 L Albumin 2.6 L 04/25/21 04/26/21 04/26/21 06:14 05:29 05:29 WBC 16.24 H RBC 3.04 L 3.07 L Hgb 9.3 L 9.4 L Hct 29.6 L 29.8 L MCHC 31.4 L 31.5 L RDW Std Deviation 46.5 H 46.9 H Plt Count 415 H 444 H Neut # (Auto) 14.48 H 6.77 H Lymph # (Auto) 1.13 L 1.07 L [place] # (Auto) 0.74 H Immature Gran # (Auto) 0.04 H Potassium Chloride 110 H Carbon Dioxide BUN Creatinine 1.29 H BUN/Creatinine Ratio Calcium 8.4 L Total Protein Albumin 04/27/21 04/27/21 04/28/21 05:31 05:31 05:48 WBC RBC 2.92 L Hgb 9.0 L Hct 28.0 L MCHC RDW Std Deviation Plt Count 417 H Neut # (Auto) Lymph # (Auto) 1.16 L [place] # (Auto) 0.73 H Immature Gran # (Auto) Potassium 3.4 L Chloride 110 H 110 H Carbon Dioxide BUN Creatinine BUN/Creatinine Ratio 9.3 L Calcium 8.4 L 8.4 L Total Protein Albumin 04/28/21 05:48 WBC RBC 3.00 L Hgb 9.2 L Hct 29.0 L MCHC 31.7 L RDW Std Deviation Plt Count 405 H Neut # (Auto) Lymph # (Auto) 1.15 L [place] # (Auto) Immature Gran # (Auto) 0.04 H Potassium Chloride Carbon Dioxide BUN Creatinine BUN/Creatinine Ratio Calcium Total Protein Albumin
[2021-04-29] MEDS: ATORVASTATIN 10 MG TAB PO SCH (20:45)
[2021-04-29] MEDS: ASPIRIN 81 MG ECTAB PO SCH (20:45)
[2021-04-29] MEDS: OMEGA-3 (PURIFIED FISH OIL) 1 GM CAP PO SCH (20:46)
[2021-04-29] MEDS: lisinopril 20 MG TAB PO SCH (20:46)
[2021-04-30 07:36] LABS: Creatinine Clr Calc Pharmacy 47.4 ml/min; Est GFR (African American) 51.9 ml/min; Est GFR (Non-African American) 44.8 ml/min
[2021-04-30] MEDS: [UNRECOGNIZED DRUG - OTHER] PO SCH (08:19)
[2021-04-30] MEDS: ZINC SULFATE 220 MG CAPSULE PO SCH (08:20)
[2021-04-30] MEDS: carvediloL 6.25 MG TAB PO SCH (08:20)
[2021-04-30] MEDS: CHOLECALCIFEROL 1,000 UNITS 25 MCG TAB PO SCH (08:20)
[2021-04-30] MEDS: ASCORBIC ACID 500 MG TAB PO SCH (08:20)
[2021-04-30] MEDS: PIPERACILLIN/TAZOBACTAM 4.5 GM in DEXTROSE 5% 100 ML IV SCH (08:22)
[2021-04-30] MEDS: ENOXAPARIN INJ 40 MG/0.4 ML SYR SQ SCH (09:48)
--- NOTE | 2021-04-30 12:13 | Surgery Progress Note ---
Date of Service April 30, 2021 Assessment & Plan (1) Acute appendicitis with rupture: (2) Abdominal abscess: Plan: POD # 2 s/p exploratory laparoscopy , drainage of intra-abdominal abscesses and placement of two surgical drains -afebrile, vss - postop pain controlled - leukocytosis resolved (16k preop) - no n/v - + bowel function Plan: Continue pain management as needed Continue IV fluids Clear liquids for today Continue IV Zosyn and Vancomycin, awaiting sensitivities continue terrie drains to bulb suction, will go home with surgical drains Lovenox and SCDs for dvt prophylaxis Incentive spirometry OOB to chair and then ambulate repeat am labs Dr. Chavez covering this weekend Dr. Dunn has seen and examined pt, agrees with above. 04/29/2021 11:59AM Dr. dunn POD # 5 s/p exploratory laparoscopy , drainage of intra-abdominal abscesses and placement of two surgical drains -afebrile, vss - no abdominal apin, OOB - continue iv antibiotic, - no n/v - + bowel function, tolerated regular diet, possible D/C home with TERRIE and po antibiotic, Cipro + flagyl, for 10 days, will F/U, 04/30/2021 12:19AM Dr. dunn POD # 6 s/p exploratory laparoscopy , drainage of intra-abdominal abscesses and placement of two surgical drains -afebrile, vss - no abdominal apin, OOB - continue iv antibiotic, - no n/v - + bowel function, tolerated regular diet, D/C home today with TERRIE and po antibiotic, Cipro + flagyl, for 10 days, pt agrees with the plan and discharge today, F/U nj on 05/08 11AM, Admission and Anticipated Discharge Date Admission Date: April 24, 2021 Subjective Patient is resting comfortably in bed. She reports she had a decent night. She says she is tolerated full liquid diet yesterday although admits she does not have much in the way of appetite and does not feel very hungry at the present time. She does report having a bowel movement last night. She denies any nausea vomiting. She denies any fevers, shakes, chills. 04/29/2021 11:56AM Dr. Dunn F/U S/P laparoscopic drainage abdominal abscess, POD 5, pt was diagnosis sepsis at admission, pt is doing fine, no abdominal pain, no fever, no diarrhea, tolerated diet, TERRIE, 20 ml each, cloud color, 04/30/2021 12:14PM Dr. Dunn F/U S/P laparoscopic drainage abdominal abscess, POD 6, reviewed peritoneal fluid culture wit pt, pt is doing fine, no abdominal pain, no fever, no diarrhea, tolerated diet, TERRIE, 49 ml each, cloud color Review of Systems Constitutional: as per Subjective / HPI Eyes: as per Subjective / HPI Respiratory: as per Subjective / HPI Cardiovascular: Additional Comments: abnormal EKG, no chest pain Gastrointestinal: as per Subjective / HPI Genitourinary: as per Subjective / HPI Musculoskeletal: as per Subjective / HPI Neurologic: as per Subjective / HPI Psychiatric: as per Subjective / HPI Endocrine: as per Subjective / HPI Hematologic / Lymphatic: as per Subjective / HPI Physical Exam Constitutional: WD/WN, vitals as above Eyes: PERRL, conjunctivae normal, anicteric sclerae Neck: trachea midline, no thyromegaly Respiratory: normal respiratory effort, lungs clear to auscultation Cardiovascular: RRR, no murmur, no edema Gastrointestinal (Abdomen): soft, NT, ND, BS +, all incision intact, no redness, 2 TERRIE intact, Musculoskeletal: no cyanosis or clubbing, extremities motor strength 5/5 Neurologic: patellar DTR's 2+ bilat, sensation intact Psychiatric: A+Ox3, euthymic affect Results & Data ([facility]) Vital Signs (Past 12 Hours) Vital Signs Temp Pulse Pulse Pulse Resp BP BP 04/30/21 12:01 36.6 C 73 69 19 158/89 H 151/95 H 04/30/21 11:33 36.6 C 69 19 151/95 H 04/30/21 07:07 74 04/30/21 07:04 36.7 C 68 18 144/84 H 04/30/21 03:41 36.7 C 80 15 147/78 H Pulse Ox 04/30/21 12:01 95 04/30/21 11:33 95 04/30/21 07:07 04/30/21 07:04 95 04/30/21 03:41 94
--- NOTE | 2021-05-01 02:20 | Discharge Summary (DS) ---
DATE OF ADMISSION: 04/24/2021. DATE OF DISCHARGE: 04/30/2021. ADMISSION DIAGNOSIS: Perforated acute appendicitis with abscess and sepsis. POSTOPERATIVE DIAGNOSIS: Perforated acute appendicitis with abscess and sepsis. OPERATION: Exploratory laparoscopy, drainage of abdominal abscess, and placement of two SHUKRI drainage. SURGEON: Sandra Dunn MD DETAILS OF DISCHARGE SUMMARY: This is a 75-year-old female who presented to the ED with a 2-week history of abdominal pain. The patient had a CT scan diagnosis of perforated acute appendicitis with abscess, sepsis. We took the patient to the OR, we did exploratory laparoscopy, drainage of abdominal abscess. Once we cleaned the abscess, the appendix had significant inflammation, was not favorable to dissection. Removed appendix at this moment and once we cleaned up all the larger abscess on the right side of the abdomen, we put two SHUKRI drainage, and then we closed the incision. The patient tolerated the procedure well. After the procedure, the patient was transferred to regular floor later on and the patient is doing fine. We continued to give her IV antibiotic and later on the patient started a diet. The patient tolerated diet and abdominal pain. PHYSICAL EXAMINATION: VITAL SIGNS: Temperature is 36.6, the respiratory rate is 19, the heart rate is 73, the blood pressure 158/89, O2 saturation 95% on room air. GENERAL: The patient is alert, awake, oriented x3. HEENT: Within normal limitation. NEUROLOGIC: Intact. NECK: No JVD. CHEST: Bilateral lung sounds clear. HEART: Normal S1 and S2. No murmur. ABDOMEN: Soft, nondistended, no tenderness. All incisions intact. No redness. Two SHUKRI drainage is intact. The SHUKRI drainage is minimal, about 49 mL over 24 hours and we will leave the two SHUKRI drainage when the patient is discharged home today. EXTREMITIES: No edema. I also reviewed the patient's peritoneal fluid culture with the patient. Otherwise, the patient is doing fine. No abdominal pain, tolerating a regular diet. No fever, and the patient wanted to go home today. We gave the patient postop care instruction and also we gave the patient Cipro and Flagyl for 10 days and Percocet for control of the pain. Instructed the patient to empty the SHUKRI, to record the output every day. I will follow up the patient in one week in my office. The patient understands and I answered all questions. The patient wanted to go home today. Two days ago, the patient had a white count of 6.46, hemoglobin is 9.2, and otherwise, the patient is doing fine and the patient will be discharged today. Job ID: [id number] [facility]
== END 2021-04-30 13:52 | disposition home or self-care (01) | DRG 853 ==
LOC: ED 09:46 → 2S 04-24 11:11 → PACUINP 04-24 14:52 → 2S 04-24 20:07